=== PATIENT | male | born 1955 | race Caucasian/White ===

== ENCOUNTER 2017-02-11 17:20 | Inpatient (IN) ==
[2017-02-11 19:38] LABS: Basophils # 0.1 10*3/uL (0.0-0.2); Basophils % 0.8 % (0.0-0.8); Eosinophils # 0.3 10*3/uL (0.0-0.87); Eosinophils % 2.4 % (0.00-10.9); Hematocrit 49.8 VOL% (42.0-52.0); Hemoglobin 17.8 GM/DL (14.0-18.0); Immature Granulocytes % 0.5 %; Immature Granulocytes Absolute 0.06 #; Lymphocytes # 2.5 10*3/uL (1.4-4.0); Lymphocytes % 22.3 % (21.2-54.2); Mean Corpuscular HGB Conc 35.7 GM/DL (32-36); Mean Corpuscular Hemoglobin 35 PG (27-34); Mean Platelet Volume 10.7 FL (9.6-12.0); Monocytes # 1.1 10*3/uL (0.11-0.8); Monocytes % 9.8 % (1.7-12.7); Neutrophils # 7.3 10*3/uL (1.4-7.4); Neutrophils % 64.2 % (38.7-73.9); Platelet Count 204 T/CUMM (130-400); Red Blood Count 5.08 MC/CUMM (3.8-5.5); Red Cell Distribution Width 14.4 % (9.3-17.3); White Blood Count 11.3 T/CUMM (4-12)
[2017-02-11 19:48] LABS: PT Patient Result 10.8 SECS; Partial Thromboplastin Time 27.9 SECS (0-40)
[2017-02-11 19:49] LABS: Calcium 8.1 MG/DL (8.5-10.1); Osmolality,Calculated 272.7 MOS/KG (273-304); Potassium 4.4 MMOL/L (3.5-5.1)
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
[2017-02-11] MEDS ORDERED: ASPIRIN 325 MG TABLET PO STA (22:08)
[2017-02-11] MEDS ORDERED: ENOXAPARIN 60 MG/0.6 ML SYRINGE SUBCUT STA (22:08)
[2017-02-11] MEDS ORDERED: ENOXAPARIN 60 MG/0.6 ML SYRINGE ONE (22:19)
[2017-02-11] MEDS ORDERED: ASPIRIN 325 MG TABLET ONE (22:20)
[2017-02-11] MEDS ORDERED: ONDANSETRON 4 MG/2 ML VIAL IV PRN (22:35)
[2017-02-11] MEDS ORDERED: ACETAMINOPHEN 325 MG TABLET PO PRN (22:35)
[2017-02-11] MEDS ORDERED: PROMETHAZINE 25 MG/1 ML VIAL IM PRN (22:35)
[2017-02-11] MEDS ORDERED: MORPHINE 2 MG/1 ML SYRINGE IV PRN (22:35)
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
[2017-02-12] MEDS ORDERED: PNEUMOCOCCAL VACCINE (23 VALENT) 0.5 ML VIAL IM ONE (09:00)
[2017-02-12] MEDS: HEPARIN DRIP 25,000 UNITS/500 ML PREMIX IV SCH (09:18)
[2017-02-12] MEDS: LACTATED RINGERS 1,000 ML IV SCH ×2 (09:28→21:56)
[2017-02-12] MEDS: PANTOPRAZOLE 40 MG TABLET PO SCH (09:29)
--- NOTE | 2017-02-12 13:36 | EKG Report ---
Stationary ECG Study [facility] Test Date: 02/12/2017 1:34:20 PM Pat Name: THAI RIVERA Department: Room: 338 Gender: M Research Biostatistician: EMILIANO : 1955 Requested by: George Cedeño Order Number: [id number] Reading MD: ALISHA BERGER Intervals [place] Rate: 149 P: 999 ID: 0 QRS: -71 QRSD: 85 T: 25 QT: 302 QTc: 387 Interpretive Statements ATRIAL FIBRILLATION WITH RAPID VENTRICULAR RESPONSE LEFT ANTERIOR FASCICULAR BLOCK ANTEROSEPTAL MYOCARDIAL INFARCTION, PROBABLY OLD LOW VOLTAGE TRACING Electronically Signed On 02-13-17 06:54:26 CDT by ALISHA BERGER [email or web address]
[2017-02-12] MEDS ORDERED: DIAZEPAM 5 MG TABLET PO PRN (14:01)
[2017-02-12] MEDS ORDERED: traMADol 50 MG TABLET PO PRN (14:01)
[2017-02-12] MEDS ORDERED: DILTIAZEM 50 MG/10 ML VIAL IV ONE ×2 (14:06→14:58)
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
[2017-02-12] MEDS ORDERED: DILTIAZEM 100 MG VIAL.ADD IV ONE (14:58)
[2017-02-12] MEDS ORDERED: SODIUM CHLORIDE 0.9% 100 ML IV ONE (15:01)
[2017-02-12] MEDS: DILTIAZEM INJ 100 MG in SODIUM CHLORIDE 0.9% 100 ML IV SCH (15:28)
[2017-02-12] MEDS: ASPIRIN CHEW 81 MG TABLET PO SCH (15:38)
[2017-02-12] MEDS: CARVEDILOL 12.5 MG TABLET PO SCH ×2 (15:38→21:20)
[2017-02-12] MEDS: AMIODARONE 200 MG TABLET PO SCH ×2 (15:39→21:20)
[2017-02-12] MEDS: ATORVASTATIN 80 MG TABLET PO SCH (20:33)
[2017-02-12] MEDS ORDERED: ENOXAPARIN 60 MG/0.6 ML SYRINGE SUBCUT SCH (22:00)
[2017-02-13] MEDS: HEPARIN DRIP 25,000 UNITS/500 ML PREMIX IV SCH ×2 (05:38→17:24)
[2017-02-13 05:40] LABS: Basophils # 0.1 10*3/uL (0.0-0.2); Basophils % 0.8 % (0.0-0.8); Eosinophils # 0.2 10*3/uL (0.0-0.87); Eosinophils % 2.5 % (0.00-10.9); Hematocrit 47.5 VOL% (42.0-52.0); Immature Granulocytes % 0.8 %; Immature Granulocytes Absolute 0.07 #; Lymphocytes % 21.2 % (21.2-54.2); Mean Corpuscular HGB Conc 35.8 GM/DL (32-36); Mean Corpuscular Hemoglobin 35 PG (27-34); Mean Corpuscular Volume 97.5 FL (87-102); Mean Platelet Volume 10.6 FL (9.6-12.0); Monocytes # 0.7 10*3/uL (0.11-0.8); Monocytes % 7.1 % (1.7-12.7); Neutrophils # 6.3 10*3/uL (1.4-7.4); Neutrophils % 67.6 % (38.7-73.9); Platelet Count 203 T/CUMM (130-400); Red Blood Count 4.87 MC/CUMM (3.8-5.5); Red Cell Distribution Width 14.2 % (9.3-17.3); White Blood Count 9.3 T/CUMM (4-12)
[2017-02-13] MEDS: DILTIAZEM INJ 100 MG in SODIUM CHLORIDE 0.9% 100 ML IV SCH ×2 (05:40→20:09)
[2017-02-13 06:06] LABS: Calcium 8.1 MG/DL (8.5-10.1); Osmolality,Calculated 270.8 MOS/KG (273-304)
[2017-02-13] MEDS: CARVEDILOL 12.5 MG TABLET PO SCH ×2 (08:33→20:09)
[2017-02-13] MEDS: ASPIRIN CHEW 81 MG TABLET PO SCH (08:34)
[2017-02-13] MEDS: PANTOPRAZOLE 40 MG TABLET PO SCH (08:34)
[2017-02-13] MEDS: AMIODARONE 200 MG TABLET PO SCH ×2 (08:34→20:08)
--- NOTE | 2017-02-13 08:56 | Cardiology Progress Note ---
Assessment and Plan - Time spent with patient Time spent with patient: Greater than 30 minutes (1) Atrial fibrillation with RVR Status: Acute Current Visit: No (2) Coronary artery disease Status: Acute Current Visit: No (3) Medical non-compliance Status: Acute Current Visit: No (4) Peripheral vascular disease Status: Acute Current Visit: No Cardiology - PN: Subj Interval history: Mr. Juan is a 61-year-old gentleman who has a history of cardiomyopathy had an apical thrombus that had resolved. This was in the remote past. He was lost to follow-up and has not been seen in clinic for some time. He states that he quit taking all of his medicines and then developed cramping in his right lower extremity got progressively worse. He came for further evaluation was found to have A. fib with RVR. He has a CTA which I have reviewed the final report is pending. I have reviewed the films. He has decreased flow to his right lower extremity. I have examined him today. His lower extremities are symmetrically cool he appears by angiography of the CTA to have some filling defects in the right distal profunda. Formal report is pending. Patient states that he subjectively better. Suspect he has an embolic phenomenon. He is currently on heparin infusion is also still on Cardizem infusion a very low rate. His heart rate is adequately controlled at this time. Dr. Cedeño saw the patient resumed his amiodarone. His echocardiogram is pending in our reviewing the images are available. Exam (Progress Note) - Constitutional Vitals: Period Temp Pulse Resp BP Sys/Roberts Pulse Ox Last 24 Hr 96.3 F-97.9 F 63-150 18-21 109-139/68-96 95-146 General appearance: normal weight - Head Head exam: Present: normal inspection - Eye Eye exam: Present: EOMI Pupils: Present: JOHANNY - Neck Neck exam: Present: normal inspection - Respiratory Respiratory exam: Present: clear to auscultation bilaterally - Cardiovascular Cardiovascular exam: Present: irregular rhythm (Right is about 100) - GI/Abdominal GI/Abdominal exam: Present: normal bowel sounds - Extremities Exam Extremities exam: Present: other (Symmetrically very cool. Pulses are diminished bilaterally. I am not able to palpate on either dorsalis pedis or posterior tibial. I can feel a left popliteal but not right) - Back Exam Back exam: Present: normal inspection - Neurological Exam Neurological exam: Present: alert, oriented X3 - Psychiatric Psychiatric exam: Present: normal affect, normal mood - Skin Skin exam: Present: normal color, warm, pallor (His lower extremities bilaterally) Result/EKG - Labs CBC & BMP: 02/13/17 05:18 02/13/17 05:18 Labs: Laboratory Results - last 24 hr 02/12/17 02/12/17 02/12/17 15:41 21:30 23:09 WBC RBC Hgb Hct MCV MCH MCHC RDW Plt Count MPV Neut % (Auto) Lymph % (Auto) [place] % (Auto) Eos % (Auto) Baso % (Auto) Neut # (Auto) Lymph # (Auto) [place] # (Auto) Eos # (Auto) Baso # (Auto) Immature Gran % Nucleated RBC % Immature Gran # Nucleated RBCs # Immature Plt Fraction Circ Anticoag PTT 70.4 H D 92.4 H D 64.4 H D Sodium Potassium Chloride Carbon Dioxide Anion Gap BUN Creatinine GFR Calculation BUN/Creatinine Ratio Glucose Calculated Osmolality Calcium 02/13/17 02/13/17 02/13/17 05:18 05:18 05:18 WBC 9.3 RBC 4.87 Hgb 17.0 Hct 47.5 MCV 97.5 MCH 35 H MCHC 35.8 RDW 14.2 Plt Count 203 MPV 10.6 Neut % (Auto) 67.6 Lymph % (Auto) 21.2 [place] % (Auto) 7.1 Eos % (Auto) 2.5 Baso % (Auto) 0.8 Neut # (Auto) 6.3 Lymph # (Auto) 2.0 [place] # (Auto) 0.7 Eos # (Auto) 0.2 Baso # (Auto) 0.1 Immature Gran % 0.8 Nucleated RBC % 0.0 Immature Gran # 0.07 Nucleated RBCs # 0.00 Immature Plt Fraction 0.0 Circ Anticoag PTT 89.6 H D Sodium 137 Potassium 4.0 Chloride 107 Carbon Dioxide 22 Anion Gap 12.0 BUN 7 Creatinine 1.00 GFR Calculation 87 BUN/Creatinine Ratio 7.00 Glucose 105 Calculated Osmolality 270.8 L Calcium 8.1 L - EKG EKG results: interpreted by me EKG shows: atrial fibrillation Quality Measures - VTE Contraindication to Mechanical VTE Prophylaxis: Ischemic Vascular Disease
[2017-02-13] MEDS ORDERED: VANCOMYCIN INJ 1,000 MG in SODIUM CHLORIDE 0.9% 250 ML IV ONE (09:15)
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
--- NOTE | 2017-02-13 09:44 | CT Report ---
Exam: CT angio abdomen/femoral Date: 02/13/2017 4:00 AM Comparison: None Indication: History of lower extremity claudication due to acute thromboembolus to the bilateral lower extremities with embolectomy in May of 2015. Technical: Axial CT imaging was performed from the lung bases through the iliac crest with to the toes. Coronal and sagittal reformatted images were additionally created and submitted for review. 3-D Maximal intensity projection images of the vasculature were additionally created and are available for review. 100 cc of Omnipaque 350 were utilized. Dose reduction: This CT exam was performed using one or more of the following dose reduction techniques: Automated exposure control, automated adjustment of the mA and/or KV according to patient size, or use of iterative reconstruction technique. Total DLP: 1502 mGy*cm Findings: CT angiogram: Abdomen/pelvis. Descending thoracic aorta is nonaneurysmal with minimal atherosclerotic plaque. Celiac artery and superior mesenteric arteries are essentially widely patent. There are also single bilateral renal arteries which are essentially widely patent with no significant atherosclerotic plaque. Abdominal aorta is nonaneurysmal with very minimal atherosclerotic plaque. Inferior mesenteric artery is patent. Within the pelvis, there is nonvisualization of the bilateral internal iliac arteries, possibly due to occlusion from thrombus. This is most prominent at the right proximal internal iliac artery (axial image 93), where there is suggestion of thrombus protruding into the external iliac artery lumen, which may be acute/subacute. Left internal iliac artery is not visualized currently and may be chronically occluded as this vessel was not previously visualized on the 2015 CTA. Right lower extremity: Right common femoral artery is patent with no significant atherosclerotic plaque. There is a small focal filling defect within the proximal right superficial femoral artery (axial image 139), which is indeterminate but may represent additional thrombus. The profunda femoris artery is not visualized on the right, and may be occluded from thrombus. There is minimal atherosclerotic plaque otherwise noted throughout the superficial femoral artery which is patent through the thigh. There is occlusion of the proximal popliteal artery above the knee and below the knee with minimal atherosclerotic plaque noted in the tibia peroneal trunk. The tibia peroneal vessels are not definitely opacified below the knee although there is suggestion of minimal reconstitution within the posterior tibial artery in the mid and lower turk, which is much better visualized on the delayed images. Left lower extremity: External iliac and common femoral arteries are patent. Superficial and deep femoral arteries are patent proximally. There is occlusion of the proximal deep femoral artery, likely due to acute/subacute thrombus. A few of the muscular branches however remain patent. The superficial femoral artery is patent. Proximal popliteal artery is patent. There is occlusion of the mid popliteal artery at the level of the knee, possibly due to acute/subacute thrombus. Below the knee, there is minimal visualization of patent/opacified vessels on the study. On the delayed images, there is minimal opacification of the peroneal artery, which appear to the be the primary supply to the left foot. Soft tissue analysis: Lung bases: Minimal posterior basilar atelectasis. No significant pleural or pericardial effusion. Liver and gallbladder: No abnormal enhancing hepatic lesions. No gallstones. No biliary ductal dilatation. Portal vein is not well visualized due to contrast bolus timing. Spleen: Hypodense lesion within the spleen is noted and may represent a cyst measuring up to 2.7 cm, this was not definitely identified on the 2015 study and is therefore indeterminate. Pancreas: Unremarkable Adrenals: Unremarkable Kidneys: Both kidneys are equally perfused and demonstrate no evidence for obstructive uropathy. Areas of cortical irregularity are noted bilaterally, slightly more prominent on the left and may be due to prior infection/trauma. There is no hydronephrosis. Bowel and Mesentery: Small bowel is nondilated. No free fluid/air within the abdomen. No mesenteric adenopathy. Moderate stool throughout colon. Retroperitoneum: No enlarged lymph nodes. IVC: Appears patent Pelvis: Bladder: Bladder appears unremarkable for degree of distention. Fluid: No free fluid identified. Lymph nodes: No enlarged lymph nodes. Pelvic organs: Prostate is not enlarged. Osseous structures: No acute or suspicious osseous abnormalities are identified. Multilevel degenerative changes noted within the lower thoracic and lumbar spine near the lumbosacral junction, which appear similar to minimally progressed from the 2015 CT study. Impression: 1. No evidence of aortic aneurysm or significant atherosclerotic disease. 2. Development of occlusion of multiple vessels, possibly due to acute/subacute thromboembolism. This includes the right internal iliac artery, the right deep femoral artery, the right popliteal artery, the left deep femoral artery and left popliteal artery. On delayed images, there is diminutive runoff to both feet primarily a 1 vessel runoff as detailed above. Overall, minimal atherosclerotic plaque/disease is visualized above the knee bilaterally. 3. Nonspecific 2.7 cm hypodense lesion within the spleen is indeterminate. This was not definitely present on the 2015 study. Malignancy is not excluded. This bears watching on subsequent studies for stability. Ultrasound could also be obtained for further evaluation when clinically feasible. Critical findings discussed with Dr. Parrish via telephone at 9:40 AM on the day of the examination. PROCEDURE INTERPRETED AT [facility] DEPARTMENT OF RADIOLOGY Final Report Signed by: Alejandro Wakefield
[2017-02-13] MEDS ORDERED: DIAZEPAM 5 MG TABLET PO ONE ×2 (10:02→10:08)
[2017-02-13] MEDS ORDERED: FAMOTIDINE 20 MG TABLET PO ONE ×2 (10:02→10:03)
--- NOTE | 2017-02-13 10:55 | ECHO Report ---
Ericka Juan Exam Date: 02/13/2017 08:52 Referring Physician: Technologist: Camille Thao RDCS Age: 61 Ht (in): 68 Wt (lb): 163 Gender: M Exam Location: [facility] Echo Indications: Atrial fibrillation, Right femoral embolus, Essential (primary) hypertension, Shortness of breath, Pre Op BP: 118 / 72 HR: 68 Rhythm: Atrial fibrillation Technical Quality: Average IMPRESSIONS Left ventricular ejection fraction is estimated at 40 %. Left ventricular apical thrombus Three chamber cardiac enlargement Tricuspid insufficiency and mild pulmonary hypertension estimated at 29 mmHg plus the right atrial pressure Atrial fibrillation with indeterminant diastolic parameters MEASUREMENTS (Male / Female) Normal Values 2D ECHO LV Diastolic Diameter PLAX 4.4 cm 4.2 - 5.9 / 3.9 - 5.3 cm LV Systolic Diameter PLAX 3.2 cm LV Fractional Shortening PLAX 26.4 % IVS Diastolic Thickness 0.8 cm 0.6 - 1.0 / 0.6 - 0.9 cm LVPW Diastolic Thickness 1.0 cm 0.6 - 1.0 / 0.6 - 0.9 cm RV Internal Dim ED PLAX 3.1 cm Aortic Root Diameter 3.4 cm LA Systolic Diameter LX 4.7 cm 3.0 - 4.0 / 2.7 - 3.8 cm DOPPLER TR Peak Velocity 270.0 cm/s TR Peak Gradient 29.2 mmHg FINDINGS Left Ventricle Normal left ventricular cavity size. Normal left ventricular wall thickness. Left ventricular ejection fraction is estimated at 40 %. The apex is thinned and there is hyperechoic endocardium/epicardium. There is a large mobile structure attached at the apex of the left ventricle that is broad based and measures 1.95 X 2.65 cm in greatest dimension. This is consistent with apical ventricular thrombus. The patient is in atrial fibrillation and therefore diastolic parameters are indeterminant. Right Ventricle Moderately increased right ventricular size and moderately depressed function. Right Atrium Moderately increased right atrial size. Left Atrium Moderately increased left atrial size. Mitral Valve Morphologically normal mitral valve. Trace to mild mitral valve regurgitation. There is mitral annular calcification with no demonstrable mitral stenosis. Aortic Valve Mild aortic valve sclerosis and mildly calcified without stenosis or regurgitation. Tricuspid Valve Morphologically normal tricuspid valve. Mild tricuspid valve regurgitation. Tricuspid regurgitation velocities suggest a RVSP of 29 mmHg plus the right atrial pressure. Pulmonic Valve Morphologically normal pulmonic valve without significant stenosis. There is no pulmonic regurgitation. Pericardium Normal pericardium without effusion. Aorta Normal ascending aorta dimension. Kayleigh Pagan (Electronically Signed) Final Date: 13 February 2017 10:53
[2017-02-13] MEDS ORDERED: VANCOMYCIN 500 MG VIAL ONE (11:48)
[2017-02-13] MEDS ORDERED: TISSUE ADHESIVE 1 EACH APPLICATOR TOP ONE (11:48)
[2017-02-13] MEDS ORDERED: HEPARIN 5,000 UNIT/1 ML VIAL ONE ×2 (11:48→13:10)
[2017-02-13] MEDS: LACTATED RINGERS 1,000 ML IV SCH ×3 (12:04→17:23)
[2017-02-13] MEDS ORDERED: fentaNYL 100 MCG/2 ML VIAL ONE (14:16)
[2017-02-13] MEDS ORDERED: SEVOFLURANE 1 UNIT/15 MINUTE INH ONE (14:16)
[2017-02-13] MEDS ORDERED: HEPARIN/NACL 0.9% 2 UNITS/ML 500 ML IV ONE (14:16)
[2017-02-13] MEDS ORDERED: ePHEDrine 50 MG/ML AMP ONE (14:19)
[2017-02-13] MEDS ORDERED: HYDROmorphone 2 MG/1 ML VIAL ONE (14:24)
[2017-02-13] MEDS ORDERED: ONDANSETRON 4 MG/2 ML VIAL ONE (14:24)
--- NOTE | 2017-02-13 14:34 | Interventional Radiology Rpt ---
IR interventional pro in OR Indication: Right femoral endarterectomy. Intraoperative angiogram right le images stored of 8 intraoperative arteriogram of the right thigh. Fluoroscopy time 5 minutes 20 seconds. Contrast is injected mid right SFA. There is segmental occlusion of the popliteal artery that never resolves. Another segmental occlusion of the tibioperoneal trunk is present. Outflow to the right posterior tibial artery noted once the occluded segment was crossed with a catheter. However, there is no direct inflow present. Impression: Occluded segments of the right popliteal artery and tibioperoneal trunk as described. Widely patent distal right PT, without direct inflow. PROCEDURE INTERPRETED AT [facility] DEPARTMENT OF RADIOLOGY Final Report Signed by: Rambo Funes M.D.
[2017-02-13] MEDS ORDERED: ONDANSETRON 4 MG/2 ML VIAL IV PRN (14:48)
[2017-02-13] MEDS ORDERED: HYDROmorphone 2 MG/1 ML VIAL IV PRN (14:48)
--- NOTE | 2017-02-13 18:27 | Operative Note ---
Date of procedure: 02/13/17 Procedure: Dr. Parrish operative report Luis ambriz Surgeon: Shivani Anesthesia: Tested general endotracheal Preoperative diagnosis: Right popliteal and superficial femoral embolus Postoperative diagnosis: Same Right femoral embolectomy with on table arteriography Indication for the procedure Mr. Justice is 61-year-old man who was admitted with the acute onset of right leg claudication more severe than he had had in the recent past his past medical history is significant for atrial fibrillation and previous embolic event involving his left leg he has not had any change in his left leg symptoms CTA has been done and it shows embolus in the right internal iliac the right popliteal profunda and the right popliteal arteries and what appears to be old disease in the left popliteal and trifurcation vessels I have offered embolectomy and any other procedures needs to have explained the alternatives risks and complications which he understands and accepts Description of the procedure: After the induction of general endotracheal anesthesia the patient's lower abdomen and right leg to the ankle are prepped with ChloraPrep and draped in the usual fashion Ioban is used to the groin incision was made over the femoral Canal and carried down to the common femoral artery separately controlling the common femoral profunda and superficial femorals I made a fairly long arteriotomy to be certain that I had control of the bifurcation of the common femoral the patient had been on heparin and was given another 5000 IUs Vesseloops a Satinsky clamp to control the common superficial and profunda femoris vessels I did find fresh and old or thrombus and embolus at the bifurcation of the superficial femoral and into the profunda these were removed with a #4 Christelle catheter I was able to run the Christelle catheter to the level of about the mid popliteal artery could not get it to go any further but will obtain much better backbleeding from both the superficial femoral and the profunda I obtained good bleeding from the iliac and actually did remove some embolus from the common iliac. I did arteriography that showed the dye column stopping at the popliteal I explored this with the guidewire and a 4 Peruvian catheter which I can get down into the distal popliteal but could not really get any kind catheter into the distal popliteal and could not get a balloon catheter into the distal popliteal. My thought was at this point in time the patient obviously is been having some chronic disease in this area with minimal symptoms I felt therefore I would not persist in attempting to revascularize to the lower leg that if this becomes indicated something like a femoral-popliteal bypass may be more appropriate. The arteries were flushed and the incision was closed with a bovine pericardial patch and 506 0 Prolene suture hemostasis was good there is good Doppler flow in the profunda and superficial femoral at the completion the incision was irrigated there was sprayed with Tisseel for reading establishing hemostasis in the this case were we will resume heparin and Coumadin due to his chronic atrial fibrillation and known apical thrombus. Incision was closed with 2-0 Monocryl and skin clips blood loss is estimated 150-200 cc sponge needle and his counts are correct and the patient taken to recovery in stable condition Surgeon / Physician: Adair Parrish Results - Labs CBC & BMP: 02/13/17 05:18 02/13/17 05:18 Discharge Plan - Discharge Medications New traMADol TAB [Ultram] 50 mg PO Q6H PRN #20 tablet PRN Reason: Pain No Action Potassium Chloride Cap/Tab [Micro K] 8 meq PO BID #30 capsule Tramadol HCl [Tramadol Tab] 50 mg PO Q6H PRN #20 tablet PRN Reason: Pain Aspirin Chew Tab 81 mg PO DAILY tablet Amiodarone Tab [Cordarone Tab] 400 mg PO BID #60 tablet Carvedilol [Coreg] 12.5 mg PO BID #60 tablet Warfarin [Coumadin] 5 mg PO DAILY@1800 #14 tablet Atorvastatin [Lipitor] 80 mg PO BEDTIME #30 tablet HYDROcodone/ACETAMIN 10-325 [[place] 10-325] 1 tablet PO Q4H PRN #30 tablet PRN Reason: Pain Moderate (4-7) Diazepam Tab [Valium Tab] 5 mg PO Q2H PRN #0 tablet PRN Reason: Agitation Lisinopril [Prinivil] 2.5 mg PO DAILY #30 tablet - Follow Up or Referral - Forms/Instructions
[2017-02-13] MEDS: ATORVASTATIN 80 MG TABLET PO SCH (20:08)
[2017-02-13] MEDS: DOCUSATE SODIUM 100 MG CAPSULE PO SCH (20:08)
[2017-02-14] MEDS: LACTATED RINGERS 1,000 ML IV SCH (04:13)
[2017-02-14 05:59] LABS: Basophils % 0.6 % (0.0-0.8); Eosinophils # 0.2 10*3/uL (0.0-0.87); Hemoglobin 14.3 GM/DL (14.0-18.0); Immature Granulocytes % 0.3 %; Immature Granulocytes Absolute 0.02 #; Lymphocytes # 1.5 10*3/uL (1.4-4.0); Lymphocytes % 20.4 % (21.2-54.2); Mean Corpuscular HGB Conc 34.9 GM/DL (32-36); Mean Corpuscular Hemoglobin 35 PG (27-34); Mean Corpuscular Volume 100.5 FL (87-102); Mean Platelet Volume 10.5 FL (9.6-12.0); Monocytes # 0.6 10*3/uL (0.11-0.8); Monocytes % 7.7 % (1.7-12.7); Platelet Count 171 T/CUMM (130-400); Red Blood Count 4.08 MC/CUMM (3.8-5.5); Red Cell Distribution Width 14.5 % (9.3-17.3); White Blood Count 7.3 T/CUMM (4-12)
[2017-02-14 06:56] LABS: Calcium 7.7 MG/DL (8.5-10.1); Osmolality,Calculated 273.7 MOS/KG (273-304); Potassium 4.4 MMOL/L (3.5-5.1)
--- NOTE | 2017-02-14 07:57 | Event Note ---
Mr. Justice is actually doing well this morning, early incision looks good with no hematoma. Foot is warm I cannot palpate pedal pulses but I am not surprised popliteal occlusion of 6 oh and so has the chart I am asked that he ambulate today we will get him off his heparin infusion appropriately from his cardiac thrombus I did agree to resume his Coumadin yesterday as he should be here long enough to start ambulating and to get his Coumadin therapeutic
[2017-02-14] MEDS: AMIODARONE 200 MG TABLET PO SCH (08:33)
[2017-02-14] MEDS: DOCUSATE SODIUM 100 MG CAPSULE PO SCH ×2 (08:33→21:01)
[2017-02-14] MEDS: CARVEDILOL 12.5 MG TABLET PO SCH ×2 (08:33→21:01)
[2017-02-14] MEDS: PANTOPRAZOLE 40 MG TABLET PO SCH (08:34)
[2017-02-14] MEDS: ASPIRIN CHEW 81 MG TABLET PO SCH (08:34)
--- NOTE | 2017-02-14 09:34 | Cardiology Progress Note ---
Assessment and Plan (1) Atrial fibrillation with RVR Status: Acute Assessment and plan: This is paroxysmal and back in sinus rhythm Current Visit: No (2) Coronary artery disease Status: Chronic Current Visit: No Qualifiers: Coronary Disease-Associated Artery/Lesion type: [place] artery [place] vs. transplanted heart: [place] heart Associated angina: without angina Qualified Code(s): I25.10 - Atherosclerotic heart disease of [place] coronary artery without angina pectoris (3) Medical non-compliance Status: Chronic Current Visit: No (4) Peripheral vascular disease Status: Acute Current Visit: No (5) Dyslipidemia Status: Chronic Current Visit: Yes Cardiology - PN: Subj Interval history: Mr. Juan today states he subjectively better. I discussed with Dr. Parrihs this morning. The patient will continue on heparin while we are overlapping with warfarin. One of the newer novel anticoagulants would probably be better for him but financially this would not be possible. His heart rate is down and he is in normal sinus rhythm. Will discontinue his Cardizem infusion and decrease his amiodarone to a more routine dose. We have room to increase his beta- lori if needed. Would like to avoid Cardizem if possible. Consider discontinuation of amiodarone as he has a secondary indication for anticoagulation with his thrombus. Exam (Progress Note) - Constitutional Vitals: Period Temp Pulse Resp BP Sys/Roberts Pulse Ox Last 24 Hr 96.3 F-98.6 F 48-73 16-20 93-116/60-77 92-98 General appearance: normal weight - Eye Eye exam: Present: EOMI Pupils: Present: JOHANNY - Neck Neck exam: Present: normal inspection - Respiratory Respiratory exam: Present: clear to auscultation bilaterally - Cardiovascular Cardiovascular exam: Present: regular rate and rhythm - GI/Abdominal GI/Abdominal exam: Present: normal bowel sounds - Extremities Exam Extremities exam: Present: normal inspection (Access site right groin looks good. It is dressed) - Neurological Exam Neurological exam: Present: alert, oriented X3 - Psychiatric Psychiatric exam: Present: normal affect, normal mood - Skin Skin exam: Present: normal color, warm, dry Result/EKG - Labs CBC & BMP: 02/14/17 05:53 02/14/17 05:53 Labs: Laboratory Results - last 24 hr 02/13/17 02/13/17 02/14/17 14:37 23:23 05:53 WBC 7.3 RBC 4.08 Hgb 14.3 D Hct 41.0 L MCV 100.5 MCH 35 H MCHC 34.9 RDW 14.5 Plt Count 171 MPV 10.5 Neut % (Auto) 68.0 Lymph % (Auto) 20.4 L Dickinson % (Auto) 7.7 Eos % (Auto) 3.0 Baso % (Auto) 0.6 Neut # (Auto) 5.0 Lymph # (Auto) 1.5 Dickinson # (Auto) 0.6 Eos # (Auto) 0.2 Baso # (Auto) 0.0 Immature Gran % 0.3 Nucleated RBC % 0.0 Immature Gran # 0.02 Nucleated RBCs # 0.00 Immature Plt Fraction 0.0 Circ Anticoag PTT 89.9 H 60.0 H D Sodium Potassium Chloride Carbon Dioxide Anion Gap BUN Creatinine GFR Calculation BUN/Creatinine Ratio Glucose Calculated Osmolality Calcium 02/14/17 02/14/17 05:53 05:53 WBC RBC Hgb Hct MCV MCH MCHC RDW Plt Count MPV Neut % (Auto) Lymph % (Auto) Dickinson % (Auto) Eos % (Auto) Baso % (Auto) Neut # (Auto) Lymph # (Auto) Dickinson # (Auto) Eos # (Auto) Baso # (Auto) Immature Gran % Nucleated RBC % Immature Gran # Nucleated RBCs # Immature Plt Fraction Circ Anticoag PTT 93.4 H D Sodium 138 Potassium 4.4 Chloride 105 Carbon Dioxide 25 Anion Gap 12.4 BUN 6 L Creatinine 1.00 GFR Calculation 90 BUN/Creatinine Ratio 6.00 Glucose 111 H Calculated Osmolality 273.7 Calcium 7.7 L Quality Measures - VTE Contraindication to Pharmacological VTE Prophylaxis: Already on Theraputic Agent , No Prophylaxis Needed
--- NOTE | 2017-02-14 10:29 | Physician Query Form ---
CLICK EDIT DOCUMENT TO SELECT QUERY ANSWER --> OK --> SIGN Grace Putnam RN, CCDS Certified Clinical Emergency Room Clerk W) [phone] (f) [phone] [email or web address] PROVIDERS: Make your selection(s) from the choices in EACH section by typing an "x" and enter comments in the comment section. Please use your independent medical judgment in providing your response. This request does not imply that any particular answer is desired or expected. CLINICAL INDICATORS: (Providers should not edit this section) The medical record indicates that the patient was admitted for claudication, "probably embolic", "A. fib is probably the source of his leg pain", and the patient was started on IV Cardizem. If possible, please provide further specificity regarding atrial fibrillation, such as: ( ) Paroxysmal atrial fibrillation ( ) Persistent atrial fibrillation (X ) Chronic (permanent) atrial fibrillation ( ) Post operative complication of atrial fibrillation ( ) Other, please specify: ( ) Clinically unable to determine COMMENTS: I will defer to Dr. Mathis's assessment that it is chronic atrial fibrillation. I do not know the patient. He does. PLEASE ALSO DOCUMENT RESPONSE IN PROGRESS NOTES AND/OR DISCHARGE SUMMARY Use of terms such as suspected, likely, or probable (associated with a specific diagnosis that is being evaluated, monitored, or treated as if it exists) are acceptable and can be restated in the discharge summary if not ruled out. In Dr. Pagan's discharge summary, he lists Atrial fib as chronic. MTDD
--- NOTE | 2017-02-14 11:13 | Anesthesia Post-Op ---
Anesthesia Post OP - Post Ansesthetic Evaluation Patient seen in post op: Yes Resp: within normal limits CV: within normal limits Mental: within normal limits Temp: within normal limits Disc-[id number]-[id number]: within normal limits Nausea and Vomiting: within normal limits Pain: within normal limits
--- NOTE | 2017-02-14 12:05 | Event Note ---
I discussed this case with Dr. Olea yesterday and he agreed to take over his care since his problem is vascular.
[2017-02-14] MEDS: HEPARIN DRIP 25,000 UNITS/500 ML PREMIX IV SCH (12:29)
[2017-02-14] MEDS: WARFARIN 5 MG TABLET PO SCH (17:56)
--- NOTE | 2017-02-14 18:27 | Pathology Report from [facility] ---
[facility] ACCESSION # : [id number] PATIENT NAME : Thai Rivera ORDERING DR : MERISSA THAKKAR III, MD CLINICAL HX: Right femoral embolus POST-OP DX: Same SPECIMEN INFO: Right femoral clot GROSS DESCRIPTION: The specimen is received in formalin labeled with the patients name and consists of multiple fragments of clotted blood measuring 13.2 x 0.6 cm collectively. A commercial sales representative section submitted in one cassette. DIAGNOSIS FOR THAI RIVERA: RIGHT FEMORAL ARTERY, EMBOLECTOMY: Organizing blood clot. COLLECTED DATE: 02/13/2017 [facility] REPORT DATE: 02/14/2017 ELECTRONICALLY SIGNED BY: Nupur Carvalho III, M.D. 02/14/2017 - 10:30:44 [facility]ie
[2017-02-14] MEDS: ATORVASTATIN 80 MG TABLET PO SCH (21:01)
[2017-02-15 04:54] LABS: Basophils # 0.1 10*3/uL (0.0-0.2); Basophils % 0.7 % (0.0-0.8); Eosinophils # 0.3 10*3/uL (0.0-0.87); Hematocrit 40.9 VOL% (42.0-52.0); Immature Granulocytes % 0.4 %; Immature Granulocytes Absolute 0.03 #; Lymphocytes # 2.1 10*3/uL (1.4-4.0); Lymphocytes % 29.6 % (21.2-54.2); Mean Corpuscular HGB Conc 34.2 GM/DL (32-36); Mean Corpuscular Hemoglobin 35 PG (27-34); Monocytes # 0.7 10*3/uL (0.11-0.8); Monocytes % 9.8 % (1.7-12.7); Neutrophils # 3.9 10*3/uL (1.4-7.4); Neutrophils % 55.5 % (38.7-73.9); Platelet Count 172 T/CUMM (130-400); Red Blood Count 4.01 MC/CUMM (3.8-5.5); Red Cell Distribution Width 14.4 % (9.3-17.3)
[2017-02-15 05:10] LABS: INR 1.1; PT Patient Result 12.1 SECS
[2017-02-15 05:21] LABS: Calcium 7.7 MG/DL (8.5-10.1); Magnesium 2.2 MG/DL (1.8-2.4); Osmolality,Calculated 275.4 MOS/KG (273-304); Potassium 4.1 MMOL/L (3.5-5.1)
[2017-02-15] MEDS: DOCUSATE SODIUM 100 MG CAPSULE PO SCH ×2 (08:47→22:06)
[2017-02-15] MEDS: HEPARIN DRIP 25,000 UNITS/500 ML PREMIX IV SCH ×2 (08:47→13:59)
[2017-02-15] MEDS: AMIODARONE 200 MG TABLET PO SCH (08:47)
[2017-02-15] MEDS: CARVEDILOL 12.5 MG TABLET PO SCH ×2 (08:47→22:06)
[2017-02-15] MEDS: PANTOPRAZOLE 40 MG TABLET PO SCH (08:47)
[2017-02-15] MEDS: ASPIRIN CHEW 81 MG TABLET PO SCH (08:47)
--- NOTE | 2017-02-15 10:44 | Event Note ---
Ms. William's lab looks good Coumadin is not yet therapeutic states his leg and foot feel better. Incision looks fine. We should have him ambulating in the ortega and he can be discharged home when his Coumadin is therapeutic. I will plan to see him next week to take out skin matthew
[2017-02-15] MEDS ORDERED: guaiFENesin 200 MG/10 ML UDCUP PO PRN (10:53)
--- NOTE | 2017-02-15 11:29 | Cardiology Progress Note ---
<Camille Sunshine E - Last Filed: 02/15/17 11:04> Assessment and Plan - Time spent with patient Time spent with patient: Greater than 30 minutes (1) Left ventricular apical thrombus Status: Chronic Assessment and plan: SEE PLAN OF CARE LISTED BELOW Current Visit: Yes (2) PAF (paroxysmal atrial fibrillation) Status: Chronic Assessment and plan: SEE PLAN OF CARE LISTED BELOW Current Visit: Yes (3) Hypertension Status: Chronic Assessment and plan: SEE PLAN OF CARE LISTED BELOW Current Visit: Yes (4) Dyslipidemia Status: Chronic Assessment and plan: SEE PLAN OF CARE LISTED BELOW Current Visit: Yes (5) Atrial fibrillation with RVR Status: Acute Assessment and plan: SEE PLAN OF CARE LISTED BELOW Current Visit: No (6) Coronary artery disease Status: Chronic Assessment and plan: SEE PLAN OF CARE LISTED BELOW Current Visit: No Qualifiers: Coronary Disease-Associated Artery/Lesion type: [place] artery [place] vs. transplanted heart: [place] heart Associated angina: without angina Qualified Code(s): I25.10 - Atherosclerotic heart disease of [place] coronary artery without angina pectoris (7) Peripheral vascular disease Status: Chronic Assessment and plan: SEE PLAN OF CARE LISTED BELOW Current Visit: No (8) Tobacco dependence Status: Chronic Assessment and plan: SEE PLAN OF CARE LISTED BELOW Current Visit: No (9) Medical non-compliance Status: Chronic Assessment and plan: SEE PLAN OF CARE LISTED BELOW Current Visit: No (10) Dyslipidemia Status: Chronic Current Visit: Yes Cardiology - PN: Subj Interval history: SPORTS ANALYST: DR. BERGER SUMMARY: Mr. 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 History of left and right apical mural thrombus, intermittent atrial fibrillation, polycythemia. May 2015, patient was admitted with atrial fibrillation embolizing to his leg. Dr. Bib Valentin performed femoral-popliteal and tibial embolectomy. He was placed on Coumadin at that time however his INR was subtherapeutic on arrival (not taking due to cost). He was noted to have polycythemia during May 2015 admission but, to my knowledge, did not follow-up with hematology for further workup. Echocardiogram February 11, 2017: EF 40% (previously 20%), 3 chamber cardiac enlargement, left ventricular apical thrombus, PAP 29 mmHg + RAP. Admitted February 11, 2017 for claudication right lower extremity and was found to have thrombus in the right popliteal with some reconstitution below the knee. He was started on IV Heparin. February 13, 2017, patient underwent right popliteal and superficial femoral embolectomy performed by Dr. Parrish. He has tolerated the procedure well and remained on telemetry unit. FEBRUARY 15, 2017: This morning, patient reports right lower extremity is feeling better. Physical therapy has been consulted to ambulate patient. He remains on IV heparin. Coumadin was reinitiated last evening. Dr. Parrish feels that as soon as INR is therapeutic, he is agreeable for discharge. This morning, patient was started on oral Amiodarone as he is having paroxysms of normal sinus rhythm. Will continue to monitor his labs closely. Will further discuss with Dr. Berger and await additional recommendations. ASSESSMENT/PLAN: 1. THROMBUS RIGHT POPLITEAL ARTERY WITH CLAUDICATION - now status post revascularization 2. LEFT VENTRICULAR APICAL THROMBUS - IV Heparin, Coumadin 3. PAROXYSMAL ATRIAL FIBRILLATION - started on Amiodarone. LFTs in the morning. Continue to monitor telemetry. 4. CARDIOMYOPATHY - suspected to be combined ischemic and nonischemic. EF improved from 20% to 40%. On beta-lori. Will incorporate ALEJANDRO inhibitor when blood pressure will allow. 5. HYPERTENSION - adequately controlled on low-dose beta-lori. Blood pressure will not allow for introduction of an ALEJANDRO inhibitor 6. DYSLIPIDEMIA - FLP in a.m. LFTs in a.m. 7. NONCOMPLIANCE - reiterated the importance of continued medical compliance and follow-up 8. HIGH RISK MEDICATION - continue IV heparin until INR therapeutic. 9. CAD - stable without complaints of angina 10. TOBACCO USE - greater than 5 minutes was spent today discussing the merits of tobacco cessation Exam (Progress Note) - Constitutional Vitals: Period Temp Pulse Resp BP Sys/Roberts Pulse Ox Last 24 Hr 97.1 F-98.1 F 54-62 16-20 91-138/56-80 94-98 Exam: General: [Appears well with no apparent distress.] [Pleasant and cooperative. ] [Appears comfortable.] HEENT: [Normocephalic, atraumatic. Mucous membranes moist. No jaundice noted. Conjunctiva moist and clear, sclerae anicteric] Neck: No JVD/HJR, no thyromegaly or lymphadenopathy noted. No carotid bruit appreciated Cardiac: [Regular rate and rhythm.] [No obvious murmur rub or gallop.] Lungs: [Clear to auscultation without accessory muscle use to assist the respiratory pattern.] Not requiring oxygen Abdomen: Soft, bowel sounds normoactive. Nontender and nondistended. No abdominal bruit or thrill noted. No masses noted. Musculoskeletal: No fluid collection. Decreased range of motion is noted. Extremities: Right lower extremity access site stable without hematoma or bruit. No clubbing, cyanosis noted. [ No edema noted.] Upper extremity pulses 2+. Lower extremity pulses 1 +. Capillary refill less than 3 seconds. Skin: No unusual lesions or rashes. No skin breakdown appreciated. Neuro: Awake, alert and oriented 3. Moves all extremities well without hemiparesis or paralysis. No essential tremor is appreciated. Result/EKG - Labs CBC & BMP: 02/15/17 04:03 02/15/17 04:03 Lab Results: I have reviewed the past 24 hour labs Labs: Laboratory Results - last 24 hr 02/14/17 02/14/17 02/15/17 12:52 18:55 04:03 WBC 7.0 RBC 4.01 Hgb 14.0 Hct 40.9 L MCV 102.0 MCH 35 H MCHC 34.2 RDW 14.4 Plt Count 172 MPV 11.0 Neut % (Auto) 55.5 Lymph % (Auto) 29.6 [place]bert % (Auto) 9.8 Eos % (Auto) 4.0 Baso % (Auto) 0.7 Neut # (Auto) 3.9 Lymph # (Auto) 2.1 [place] # (Auto) 0.7 Eos # (Auto) 0.3 Baso # (Auto) 0.1 Immature Gran % 0.4 Nucleated RBC % 0.0 Immature Gran # 0.03 Nucleated RBCs # 0.00 Immature Plt Fraction 0.0 INR PT Patient/Control Mix Circ Anticoag PTT 67.9 H D 66.2 H Sodium Potassium Chloride Carbon Dioxide Anion Gap BUN Creatinine GFR Calculation BUN/Creatinine Ratio Glucose Calculated Osmolality Calcium Magnesium 02/15/17 02/15/17 04:03 04:03 WBC RBC Hgb Hct MCV MCH MCHC RDW Plt Count MPV Neut % (Auto) Lymph % (Auto) [place] % (Auto) Eos % (Auto) Baso % (Auto) Neut # (Auto) Lymph # (Auto) [place] # (Auto) Eos # (Auto) Baso # (Auto) Immature Gran % Nucleated RBC % Immature Gran # Nucleated RBCs # Immature Plt Fraction INR 1.1 PT Patient/Control Mix 12.1 Circ Anticoag PTT Sodium 140 Potassium 4.1 Chloride 106 Carbon Dioxide 30 Anion Gap 8.1 BUN 5 L Creatinine 1.00 GFR Calculation 90 BUN/Creatinine Ratio 5.00 L Glucose 98 Calculated Osmolality 275.4 Calcium 7.7 L Magnesium 2.2 - EKG EKG results: interpreted by me EKG shows: sinus rhythm, atrial fibrillation Quality Measures - VTE Contraindication to Pharmacological VTE Prophylaxis: Already on Theraputic Agent , No Prophylaxis Needed Specialty Discharge - Follow Up or Referrals Follow up with: Adair Parrish MD [Physician] - 02/21/17 2:15 pm <Kayleigh Berger - Last Filed: 02/15/17 15:06> Assessment and Plan (1) Atrial fibrillation with RVR Status: Acute Assessment and plan: Change anticoagulant Current Visit: No (2) Coronary artery disease Status: Chronic Current Visit: No Qualifiers: Coronary Disease-Associated Artery/Lesion type: [place] artery [place] vs. transplanted heart: [place] heart Associated angina: without angina Qualified Code(s): I25.10 - Atherosclerotic heart disease of [place] coronary artery without angina pectoris (3) Medical non-compliance Status: Chronic Current Visit: No (4) Peripheral vascular disease Status: Chronic Current Visit: No (5) Dyslipidemia Status: Chronic Current Visit: Yes Cardiology - PN: Subj Interval history: I saw Mr. Juan discussed with Dr. Parrish this morning we will convert him from heparin to Lovenox understanding that there is a risk for increased risk of bleeding. Hopefully we can mobilize the patient he has been up walking some in the room. Continue medical therapy for his cardiomyopathy. Anticipate discharge as soon as his INR is therapeutic. Exam (Progress Note) - Constitutional Vitals: Period Temp Pulse Resp BP Sys/Roberts Pulse Ox Last 24 Hr 97.1 F-98.1 F 55-62 16-18 101-138/65-80 94-98 Exam: I agree with the above history and physical. The patient's groin site looks good his exam is stable Result/EKG - Labs CBC & BMP: 02/15/17 04:03 02/15/17 04:03 Labs: Laboratory Results - last 24 hr 02/14/17 02/15/17 02/15/17 18:55 04:03 04:03 WBC 7.0 RBC 4.01 Hgb 14.0 Hct 40.9 L MCV 102.0 MCH 35 H MCHC 34.2 RDW 14.4 Plt Count 172 MPV 11.0 Neut % (Auto) 55.5 Lymph % (Auto) 29.6 [place] % (Auto) 9.8 Eos % (Auto) 4.0 Baso % (Auto) 0.7 Neut # (Auto) 3.9 Lymph # (Auto) 2.1 [place]bert # (Auto) 0.7 Eos # (Auto) 0.3 Baso # (Auto) 0.1 Immature Gran % 0.4 Nucleated RBC % 0.0 Immature Gran # 0.03 Nucleated RBCs # 0.00 Immature Plt Fraction 0.0 INR 1.1 PT Patient/Control Mix 12.1 Circ Anticoag PTT 66.2 H Sodium Potassium Chloride Carbon Dioxide Anion Gap BUN Creatinine GFR Calculation BUN/Creatinine Ratio Glucose Calculated Osmolality Calcium Magnesium 02/15/17 04:03 WBC RBC Hgb Hct MCV MCH MCHC RDW Plt Count MPV Neut % (Auto) Lymph % (Auto) [place] % (Auto) Eos % (Auto) Baso % (Auto) Neut # (Auto) Lymph # (Auto) [place] # (Auto) Eos # (Auto) Baso # (Auto) Immature Gran % Nucleated RBC % Immature Gran # Nucleated RBCs # Immature Plt Fraction INR PT Patient/Control Mix Circ Anticoag PTT Sodium 140 Potassium 4.1 Chloride 106 Carbon Dioxide 30 Anion Gap 8.1 BUN 5 L Creatinine 1.00 GFR Calculation 90 BUN/Creatinine Ratio 5.00 L Glucose 98 Calculated Osmolality 275.4 Calcium 7.7 L Magnesium 2.2
[2017-02-15] MEDS: WARFARIN 5 MG TABLET PO SCH (17:14)
[2017-02-15] MEDS: ENOXAPARIN 80 MG/0.8 ML SYRINGE SUBCUT SCH (22:05)
[2017-02-15] MEDS: ATORVASTATIN 80 MG TABLET PO SCH (22:06)
[2017-02-16 04:39] LABS: Basophils # 0.1 10*3/uL (0.0-0.2); Basophils % 0.8 % (0.0-0.8); Eosinophils # 0.3 10*3/uL (0.0-0.87); Eosinophils % 3.5 % (0.00-10.9); Hematocrit 43.6 VOL% (42.0-52.0); Hemoglobin 15.2 GM/DL (14.0-18.0); Immature Granulocytes % 0.7 %; Immature Granulocytes Absolute 0.06 #; Lymphocytes % 23.2 % (21.2-54.2); Mean Corpuscular HGB Conc 34.9 GM/DL (32-36); Mean Corpuscular Hemoglobin 35 PG (27-34); Mean Corpuscular Volume 100.2 FL (87-102); Monocytes # 0.9 10*3/uL (0.11-0.8); Monocytes % 10.3 % (1.7-12.7); Neutrophils # 5.4 10*3/uL (1.4-7.4); Neutrophils % 61.5 % (38.7-73.9); Platelet Count 189 T/CUMM (130-400); Red Blood Count 4.35 MC/CUMM (3.8-5.5); Red Cell Distribution Width 14.2 % (9.3-17.3); White Blood Count 8.8 T/CUMM (4-12)
[2017-02-16 04:54] LABS: INR 1.3; PT Patient Result 14.1 SECS
[2017-02-16 05:10] LABS: Albumin 2.5 G/DL (3.4-5.0); Bilirubin,Direct 0.3 MG/DL (0.0-0.20); Bilirubin,Indirect 0.9 MG/DL (0.0-1.0); Bilirubin,Total 1.2 MG/DL (0.2-1.0); Osmolality,Calculated 279.1 MOS/KG (273-304); Potassium 4.1 MMOL/L (3.5-5.1); Risk Ratio 2.68; Total Protein 5.1 G/DL (6.4-8.3); VLDL CHOLESTEROL 13.6 MG/DL
[2017-02-16] MEDS: DOCUSATE SODIUM 100 MG CAPSULE PO SCH ×2 (08:25→21:48)
[2017-02-16] MEDS: AMIODARONE 200 MG TABLET PO SCH (08:25)
[2017-02-16] MEDS: PANTOPRAZOLE 40 MG TABLET PO SCH (08:25)
[2017-02-16] MEDS: CARVEDILOL 12.5 MG TABLET PO SCH ×2 (08:25→21:48)
[2017-02-16] MEDS: ASPIRIN CHEW 81 MG TABLET PO SCH (08:25)
[2017-02-16] MEDS: ENOXAPARIN 80 MG/0.8 ML SYRINGE SUBCUT SCH ×2 (08:25→21:48)
--- NOTE | 2017-02-16 08:46 | Event Note ---
Mr. Justice appears to be returning to baseline with his ambulation states is not quite as good as before getting around reasonably well. PT and INR not yet therapeutic level he has been switched to Lovenox which is think is fully appropriate. My thoughts are that once he is therapeutic on his Coumadin he can be discharged home I will plan to see him in the office early next week for wound check
--- NOTE | 2017-02-16 08:47 | Event Note ---
Mr. Saldana had a right femoral embolectomy Monday following an episode of embolization from left ventricular thrombus. He is doing well and is resuming his anticoagulation and can be discharged for me to follow-up next week
--- NOTE | 2017-02-16 08:48 | Cardiology Progress Note ---
Assessment and Plan (1) Atrial fibrillation with RVR Status: Acute Assessment and plan: continue anticoagulation Current Visit: No (2) Coronary artery disease Status: Chronic Current Visit: No Qualifiers: Coronary Disease-Associated Artery/Lesion type: [place] artery [place] vs. transplanted heart: [place] heart Associated angina: without angina Qualified Code(s): I25.10 - Atherosclerotic heart disease of [place] coronary artery without angina pectoris (3) Medical non-compliance Status: Chronic Current Visit: No (4) Peripheral vascular disease Status: Chronic Current Visit: No (5) Dyslipidemia Status: Chronic Current Visit: Yes Cardiology - PN: Subj Interval history: Mr. Juan has no complaints this morning. No change in leg symptoms. No chest pain and no change in respiratory status. He has been walking in the room without difficulty. I have encouraged him to get up and walk in the ortega. His INR is starting to move and is 1.3 this morning. Access site in right LE looks good. Vital signs are all stable and acceptable. Exam (Progress Note) - Constitutional Vitals: Period Temp Pulse Resp BP Sys/Roberts Pulse Ox Last 24 Hr 97.3 F-98.6 F 62-116 16-20 107-124/69-94 96-100 General appearance: normal weight - Head Head exam: Present: normal inspection - Eye Eye exam: Present: EOMI Pupils: Present: JOHANNY - ENT ENT exam: Present: normal exam - Neck Neck exam: Present: normal inspection - Respiratory Respiratory exam: Present: clear to auscultation bilaterally. Absent: rhonchi, wheezes - Cardiovascular Cardiovascular exam: Present: irregular rhythm (rate in controlled and tones are quiet. PMI not localized.) - GI/Abdominal GI/Abdominal exam: Present: normal bowel sounds - Extremities Exam Extremities exam: Present: other (symmetrically cool) - Back Exam Back exam: Present: normal inspection - Neurological Exam Neurological exam: Present: alert, oriented X3 - Psychiatric Psychiatric exam: Present: normal affect, normal mood - Skin Skin exam: Present: normal color Result/EKG - Labs CBC & BMP: 02/16/17 03:37 02/16/17 03:38 Labs: Laboratory Results - last 24 hr 02/16/17 02/16/17 02/16/17 03:37 03:37 03:38 WBC 8.8 RBC 4.35 Hgb 15.2 Hct 43.6 MCV 100.2 MCH 35 H MCHC 34.9 RDW 14.2 Plt Count 189 MPV 11.0 Neut % (Auto) 61.5 Lymph % (Auto) 23.2 [place] % (Auto) 10.3 Eos % (Auto) 3.5 Baso % (Auto) 0.8 Neut # (Auto) 5.4 Lymph # (Auto) 2.0 [place] # (Auto) 0.9 H Eos # (Auto) 0.3 Baso # (Auto) 0.1 Immature Gran % 0.7 Nucleated RBC % 0.0 Immature Gran # 0.06 Nucleated RBCs # 0.00 Immature Plt Fraction 0.0 INR 1.3 PT Patient/Control Mix 14.1 Sodium 142 Potassium 4.1 Chloride 104 Carbon Dioxide 28 Anion Gap 14.1 BUN 5 L Creatinine 1.20 GFR Calculation 72 BUN/Creatinine Ratio 4.00 L Glucose 93 Calculated Osmolality 279.1 Calcium 8.0 L Magnesium 2.0 Total Bilirubin 1.20 H Direct Bilirubin 0.300 H Indirect Bilirubin 0.9 AST 49 H ALT 31 Alkaline Phosphatase 138 H Total Protein 5.1 L Albumin 2.5 L Triglycerides 68 Cholesterol 126 LDL Cholesterol 67.0 VLDL Cholesterol 13.6 HDL Cholesterol 47 Heart Disease Risk Ratio 2.68 Quality Measures - VTE Contraindication to Pharmacological VTE Prophylaxis: Already on Theraputic Agent , No Prophylaxis Needed Specialty Discharge - Follow Up or Referrals Follow up with: Adair Parrish MD [Physician] - 02/21/17 2:15 pm
[2017-02-16] MEDS: WARFARIN 5 MG TABLET PO SCH (17:09)
[2017-02-16] MEDS: ATORVASTATIN 80 MG TABLET PO SCH (21:48)
[2017-02-17 05:05] LABS: Basophils # 0.1 10*3/uL (0.0-0.2); Basophils % 0.9 % (0.0-0.8); Eosinophils # 0.4 10*3/uL (0.0-0.87); Eosinophils % 4.5 % (0.00-10.9); Hemoglobin 15.9 GM/DL (14.0-18.0); Immature Granulocytes % 0.7 %; Immature Granulocytes Absolute 0.06 #; Lymphocytes # 2.6 10*3/uL (1.4-4.0); Lymphocytes % 29.4 % (21.2-54.2); Mean Corpuscular HGB Conc 34.6 GM/DL (32-36); Mean Corpuscular Hemoglobin 34 PG (27-34); Mean Corpuscular Volume 98.9 FL (87-102); Mean Platelet Volume 10.8 FL (9.6-12.0); Monocytes # 0.8 10*3/uL (0.11-0.8); Monocytes % 9.4 % (1.7-12.7); Neutrophils # 4.9 10*3/uL (1.4-7.4); Neutrophils % 55.1 % (38.7-73.9); Platelet Count 207 T/CUMM (130-400); Red Blood Count 4.65 MC/CUMM (3.8-5.5); Red Cell Distribution Width 13.9 % (9.3-17.3); White Blood Count 8.8 T/CUMM (4-12)
[2017-02-17 05:26] LABS: INR 1.6; PT Patient Result 17.9 SECS
[2017-02-17 05:41] LABS: Calcium 8.2 MG/DL (8.5-10.1); Potassium 3.7 MMOL/L (3.5-5.1)
[2017-02-17] MEDS: ENOXAPARIN 80 MG/0.8 ML SYRINGE SUBCUT SCH ×2 (09:00→20:14)
[2017-02-17] MEDS: CARVEDILOL 12.5 MG TABLET PO SCH (09:00)
[2017-02-17] MEDS: ASPIRIN CHEW 81 MG TABLET PO SCH (09:00)
[2017-02-17] MEDS: DOCUSATE SODIUM 100 MG CAPSULE PO SCH ×2 (09:01→20:14)
[2017-02-17] MEDS: AMIODARONE 200 MG TABLET PO SCH (09:01)
[2017-02-17] MEDS: PANTOPRAZOLE 40 MG TABLET PO SCH (09:01)
--- NOTE | 2017-02-17 09:21 | Event Note ---
General Surgery Progress Note Chief complaint This patient is a 61-year-old man admitted with embolus to the right leg treated with femoral cutdown and embolectomy with on table angiogram on 2016 Dr. Parrish Interval history No events overnight. Patient is tolerating his diet just does not like the food very much. He is getting up and walking around in the hallway. He is moving his bowels and passing gas without any difficulty. His right foot feels much better. He is on Coumadin and his INR today is 1.6. Physical exam Patient is afebrile. His heart rate is irregular and tachycardic but his vital signs are otherwise unremarkable Chest is clear Heart is irregular Extremities with no edema. Good capillary refill on the right foot. Pulses are not palpable with the patient is not having any pain in the foot looks well perfused Labs Reviewed, INR 1.6 Imaging None new Assessment and plan Continue Coumadin and repeat INR tomorrow Discharge home once INR is therapeutic and we have good rate control.
[2017-02-17] MEDS ORDERED: CARVEDILOL 6.25 MG TABLET PO ONE (10:31)
--- NOTE | 2017-02-17 10:37 | Cardiology Progress Note ---
<Camille Sunshine E - Last Filed: 02/17/17 09:57> Assessment and Plan - Time spent with patient Time spent with patient: Greater than 30 minutes Time spent discussing smoking cessation with patient: 3 to 10 minutes (1) Left ventricular apical thrombus Status: Chronic Assessment and plan: Lovenox until INR therapeutic. Daily monitoring of INR. Current Visit: Yes (2) PAF (paroxysmal atrial fibrillation) Status: Chronic Assessment and plan: The past 48 hours has been in atrial fib/atrial flutter. Continue oral Amiodarone. Increasing beta-lori and monitor blood pressure accordingly. Continue Lovenox until INR therapeutic. Current Visit: Yes (3) Hypertension Status: Chronic Assessment and plan: Continue beta-lori, maximize for better heart rate control Current Visit: Yes (4) Dyslipidemia Status: Chronic Assessment and plan: Because he has mildly elevated bilirubin, will decrease his lipid-lowering agent from 80 mg each evening to 20 mg each evening. Current Visit: Yes (5) Coronary artery disease Status: Chronic Assessment and plan: SEE PLAN OF CARE LISTED BELOW Current Visit: No Qualifiers: Coronary Disease-Associated Artery/Lesion type: [place] artery [place] vs. transplanted heart: [place] heart Associated angina: without angina Qualified Code(s): I25.10 - Atherosclerotic heart disease of [place] coronary artery without angina pectoris (6) Peripheral vascular disease Status: Chronic Assessment and plan: Status post intervention by Dr. Parrish. Ambulating with decreased pain in right lower extremity. Coumadin has been initiated Current Visit: No (7) Tobacco dependence Status: Chronic Assessment and plan: Greater than 5 minutes was spent today discussing the merits of tobacco cessation Current Visit: No (8) Medical non-compliance Status: Chronic Assessment and plan: Greater than 5 minutes were spent today discussing the importance of continued compliance Current Visit: No (9) Cardiomyopathy Status: Chronic Assessment and plan: Suspected to be ischemic and nonischemic. EF has improved from 20% to 40%. He is on beta lori. Rather incorporating an ALEJANDRO inhibitor, favor a rate controlling agent therefore will maximize beta-blockade. Current Visit: Yes (10) Apical mural thrombus Status: Chronic Assessment and plan: Daily INR as we anticoagulate with Lovenox and Coumadin Current Visit: No Cardiology - PN: Subj Interval history: COILED COIL INSPECTOR: DR. BERGER SUMMARY: Mr. Juan, 61WM, with a history of known CAD (STEMI 2013 requiring POBA of the proximal left patent attorney due to thrombotic occlusion), hypertension, dyslipidemia, PVD, sedentary lifestyle, noncompliance. History of left and right apical mural thrombus, intermittent atrial fibrillation, polycythemia. May 2015, patient was admitted with atrial fibrillation embolizing to his leg. Dr. Bib Valentin performed femoral-popliteal and tibial embolectomy. He was placed on Coumadin at that time however his INR was subtherapeutic on arrival (not taking due to cost). He was noted to have polycythemia during May 2015 admission but, to my knowledge, did not follow-up with hematology for further workup. Echocardiogram February 11, 2017: EF 40% (previously 20%), 3 chamber cardiac enlargement, left ventricular apical thrombus, PAP 29 mmHg + RAP. Admitted February 11, 2017 for claudication right lower extremity and was found to have thrombus in the right popliteal with some reconstitution below the knee. He was started on IV Heparin. February 13, 2017, patient underwent right popliteal and superficial femoral embolectomy performed by Dr. Parrish. He has tolerated the procedure well and remained on telemetry unit. FEBRUARY 15, 2017: This morning, patient reports right lower extremity is feeling better. Physical therapy has been consulted to ambulate patient. He remains on IV heparin. Coumadin was reinitiated last evening. Dr. Parrish feels that as soon as INR is therapeutic, he is agreeable for discharge. This morning, patient was started on oral Amiodarone as he is having paroxysms of normal sinus rhythm. Will continue to monitor his labs closely. Will further discuss with Dr. Berger and await additional recommendations. FEBRUARY 17, 2017: Patient improving and ready for discharge. INR remains subtherapeutic at 1.6. Patient remains in atrial fibrillation/atrial flutter, heart rate averaging 79 - 129 bpm with Amiodarone 200 mg orally daily. Total and direct bilirubin slightly elevated. At this time I will decrease his Atorvastatin to 20mg each evening. Patient is to continue Lovenox until INR therapeutic and hopefully will be discharged over the weekend. I discussed with Dr. Berger and I will increase his Coreg today, closely monitoring his blood pressure. Also, will receive a one-time dose of Coumadin 10 mg this evening with continued monitoring of INR daily. ASSESSMENT/PLAN: 1. THROMBUS RIGHT POPLITEAL ARTERY WITH CLAUDICATION - now status post revascularization 2. LEFT VENTRICULAR APICAL THROMBUS - Lovenox, Coumadin 3. PAROXYSMAL ATRIAL FIBRILLATION -continue amiodarone orally daily. Patient has been taking 12.5 mg Coreg twice daily with systolic blood pressure averaging 110s. Will increase to 25 mg orally twice daily. Bilirubin slightly elevated. LFTs in the morning. Continue to monitor telemetry. 4. CARDIOMYOPATHY - suspected to be combined ischemic and nonischemic. EF improved from 20% to 40%. On beta-lori. Will incorporate ALEJANDRO inhibitor when blood pressure will allow. 5. HYPERTENSION - adequately controlled on beta-lori. Blood pressure will not allow for introduction of an ALEJANDRO inhibitor 6. DYSLIPIDEMIA - LDL 67. Will decrease Atorvastatin due to mildly elevated bilirubin and will follow labs 7. NONCOMPLIANCE - reiterated the importance of continued medical compliance and follow-up 8. HIGH RISK MEDICATION - continue Lovenox until INR therapeutic. 9. CAD - stable without complaints of angina 10. TOBACCO USE - greater than 5 minutes was spent today discussing the merits of tobacco cessation Exam (Progress Note) - Constitutional Vitals: Period Temp Pulse Resp BP Sys/Roberts Pulse Ox Last 24 Hr 96.9 F-98.2 F 79-129 16-20 114-142/78-108 96-98 Exam: General: [Appears well with no apparent distress.] [Pleasant and cooperative. ] [Appears comfortable.] HEENT: [Normocephalic, atraumatic. Mucous membranes moist. No jaundice noted. Conjunctiva moist and clear, sclerae anicteric] Neck: No JVD/HJR, no thyromegaly or lymphadenopathy noted. No carotid bruit appreciated Cardiac: [Regular rate and rhythm.] [No obvious murmur rub or gallop.] Lungs: [Clear to auscultation without accessory muscle use to assist the respiratory pattern.] Not requiring oxygen Abdomen: Soft, bowel sounds normoactive. Nontender and nondistended. No abdominal bruit or thrill noted. No masses noted. Musculoskeletal: No fluid collection. Decreased range of motion is noted. Extremities: Right groin access site stable without hematoma. No clubbing, cyanosis noted. [ No edema noted.] Upper extremity pulses 2+. Lower extremity occult palpate. Capillary refill less than 3 seconds. Skin: No unusual lesions or rashes. No skin breakdown appreciated. Neuro: Awake, alert and oriented 3. Moves all extremities well without hemiparesis or paralysis. No essential tremor is appreciated. Result/EKG - Labs CBC & BMP: 02/17/17 04:35 02/17/17 04:35 Lab Results: I have reviewed the past 24 hour labs Labs: Laboratory Results - last 24 hr 02/17/17 02/17/17 02/17/17 04:35 04:35 04:36 WBC 8.8 RBC 4.65 Hgb 15.9 Hct 46.0 MCV 98.9 MCH 34 MCHC 34.6 RDW 13.9 Plt Count 207 MPV 10.8 Neut % (Auto) 55.1 Lymph % (Auto) 29.4 [place] % (Auto) 9.4 Eos % (Auto) 4.5 Baso % (Auto) 0.9 H Neut # (Auto) 4.9 Lymph # (Auto) 2.6 [place] # (Auto) 0.8 Eos # (Auto) 0.4 Baso # (Auto) 0.1 Immature Gran % 0.7 Nucleated RBC % 0.0 Immature Gran # 0.06 Nucleated RBCs # 0.00 Immature Plt Fraction 0.0 INR 1.6 PT Patient/Control Mix 17.9 D Sodium 143 Potassium 3.7 Chloride 105 Carbon Dioxide 29 Anion Gap 12.7 BUN 6 L Creatinine 1.30 GFR Calculation 65 BUN/Creatinine Ratio 4.00 L Glucose 97 Calculated Osmolality 282.0 Calcium 8.2 L Magnesium 2.0 - EKG EKG results: interpreted by hi EKG shows: atrial fibrillation (Atrial flutter) Quality Measures - VTE Contraindication to Pharmacological VTE Prophylaxis: Already on Theraputic Agent , No Prophylaxis Needed Specialty Discharge - Follow Up or Referrals Follow up with: Adair Parrish MD [Physician] - 02/21/17 2:15 pm <Kayleigh Berger - Last Filed: 02/17/17 14:48> Assessment and Plan (1) Atrial fibrillation with RVR Status: Deleted Current Visit: No (2) Coronary artery disease Status: Chronic Current Visit: No Qualifiers: Coronary Disease-Associated Artery/Lesion type: [place] artery [place] vs. transplanted heart: [place] heart Associated angina: without angina Qualified Code(s): I25.10 - Atherosclerotic heart disease of [place] coronary artery without angina pectoris (3) Medical non-compliance Status: Chronic Current Visit: No (4) Peripheral vascular disease Status: Chronic Current Visit: No (5) Dyslipidemia Status: Deleted Current Visit: Yes Cardiology - PN: Subj Interval history: I saw and examined Mr. Juan today. Mrs. Juan was at the bedside. He appears to be in atrial flutter on telemetry at this time his INR is up to 1.6 he has been up and walking in the halls. We plan to discharge him tomorrow if his INR is continued to increase. With him being on amiodarone he will likely require relatively lower dose. His INR is increased we will decrease his Coumadin only to 5 mg tonight. Anticipate discharge tomorrow. Exam (Progress Note) - Constitutional Vitals: Period Temp Pulse Resp BP Sys/Roberts Pulse Ox Last 24 Hr 96.9 F-98.2 F 79-129 16-20 114-142/78-108 96-99 Result/EKG - Labs CBC & BMP: 02/17/17 04:35 02/17/17 04:35 Labs: Laboratory Results - last 24 hr 02/17/17 02/17/17 02/17/17 04:35 04:35 04:36 WBC 8.8 RBC 4.65 Hgb 15.9 Hct 46.0 MCV 98.9 MCH 34 MCHC 34.6 RDW 13.9 Plt Count 207 MPV 10.8 Neut % (Auto) 55.1 Lymph % (Auto) 29.4 [place] % (Auto) 9.4 Eos % (Auto) 4.5 Baso % (Auto) 0.9 H Neut # (Auto) 4.9 Lymph # (Auto) 2.6 [place] # (Auto) 0.8 Eos # (Auto) 0.4 Baso # (Auto) 0.1 Immature Gran % 0.7 Nucleated RBC % 0.0 Immature Gran # 0.06 Nucleated RBCs # 0.00 Immature Plt Fraction 0.0 INR 1.6 PT Patient/Control Mix 17.9 D Sodium 143 Potassium 3.7 Chloride 105 Carbon Dioxide 29 Anion Gap 12.7 BUN 6 L Creatinine 1.30 GFR Calculation 65 BUN/Creatinine Ratio 4.00 L Glucose 97 Calculated Osmolality 282.0 Calcium 8.2 L Magnesium 2.0
[2017-02-17] MEDS ORDERED: WARFARIN 10 MG TABLET PO ONE (18:00)
[2017-02-17] MEDS: CARVEDILOL 25 MG TABLET PO SCH (20:13)
[2017-02-17] MEDS: ATORVASTATIN 20 MG TABLET PO SCH (20:14)
[2017-02-18 04:52] LABS: Basophils # 0.1 10*3/uL (0.0-0.2); Eosinophils # 0.4 10*3/uL (0.0-0.87); Eosinophils % 4.5 % (0.00-10.9); Hematocrit 46.6 VOL% (42.0-52.0); Hemoglobin 16.1 GM/DL (14.0-18.0); Immature Granulocytes % 0.8 %; Immature Granulocytes Absolute 0.07 #; Lymphocytes # 2.8 10*3/uL (1.4-4.0); Lymphocytes % 30.2 % (21.2-54.2); Mean Corpuscular HGB Conc 34.5 GM/DL (32-36); Mean Corpuscular Hemoglobin 34 PG (27-34); Mean Corpuscular Volume 99.4 FL (87-102); Mean Platelet Volume 11.2 FL (9.6-12.0); Monocytes # 0.9 10*3/uL (0.11-0.8); Monocytes % 9.1 % (1.7-12.7); Neutrophils # 5.1 10*3/uL (1.4-7.4); Neutrophils % 54.4 % (38.7-73.9); Platelet Count 220 T/CUMM (130-400); Red Blood Count 4.69 MC/CUMM (3.8-5.5); Red Cell Distribution Width 13.7 % (9.3-17.3); White Blood Count 9.3 T/CUMM (4-12)
[2017-02-18 05:25] LABS: INR 1.7; PT Patient Result 18.6 SECS
[2017-02-18 05:27] LABS: Calcium 8.3 MG/DL (8.5-10.1); Magnesium 2.1 MG/DL (1.8-2.4); Potassium 4.1 MMOL/L (3.5-5.1)
[2017-02-18] MEDS: DOCUSATE SODIUM 100 MG CAPSULE PO SCH ×2 (08:54→21:34)
[2017-02-18] MEDS: AMIODARONE 200 MG TABLET PO SCH (08:54)
[2017-02-18] MEDS: ASPIRIN CHEW 81 MG TABLET PO SCH (08:54)
[2017-02-18] MEDS: CARVEDILOL 25 MG TABLET PO SCH ×2 (08:55→21:34)
[2017-02-18] MEDS: PANTOPRAZOLE 40 MG TABLET PO SCH (08:55)
[2017-02-18] MEDS: ENOXAPARIN 80 MG/0.8 ML SYRINGE SUBCUT SCH ×2 (08:55→21:34)
[2017-02-18] MEDS ORDERED: WARFARIN 7.5 MG TABLET PO ONE (09:51)
--- NOTE | 2017-02-18 09:54 | Cardiology Progress Note ---
Assessment and Plan (1) Coronary artery disease Status: Chronic Current Visit: No Qualifiers: Coronary Disease-Associated Artery/Lesion type: [place] artery [place] vs. transplanted heart: [place] heart Associated angina: without angina Qualified Code(s): I25.10 - Atherosclerotic heart disease of [place] coronary artery without angina pectoris (2) Medical non-compliance Status: Chronic Current Visit: No (3) Peripheral vascular disease Status: Chronic Current Visit: No (4) Atrial fibrillation Status: Chronic Current Visit: Yes Qualifiers: Atrial fibrillation type: persistent Qualified Code(s): I48.1 - Persistent atrial fibrillation (5) Apical mural thrombus Status: Chronic Current Visit: No Cardiology - PN: Subj Interval history: Mr. Juan has no complaints today. He has been up and walking. His INR was moving very nicely but has stalled. I will increase his warfarin dose. He continues to be coarse A. fib/flutter. We cannot anticoagulate him because of his embolic event. Continue anticoagulation working toward a goal INR of 2 is a minimum. Exam (Progress Note) - Constitutional Vitals: Period Temp Pulse Resp BP Sys/Roberts Pulse Ox Last 24 Hr 97 F-97.8 F 82-100 16-20 108-128/79-88 93-99 General appearance: normal weight - Eye Eye exam: Present: EOMI Pupils: Present: JOHANNY - Respiratory Respiratory exam: Present: clear to auscultation bilaterally - Cardiovascular Cardiovascular exam: Present: irregular rhythm - GI/Abdominal GI/Abdominal exam: Present: normal bowel sounds - Extremities Exam Extremities exam: Present: other (Stable) - Neurological Exam Neurological exam: Present: alert, oriented X3 Result/EKG - Labs CBC & BMP: 02/18/17 02:57 02/18/17 02:57 Labs: Laboratory Results - last 24 hr 02/18/17 02/18/17 02/18/17 02:57 02:57 02:57 WBC 9.3 RBC 4.69 Hgb 16.1 Hct 46.6 MCV 99.4 MCH 34 MCHC 34.5 RDW 13.7 Plt Count 220 MPV 11.2 Neut % (Auto) 54.4 Lymph % (Auto) 30.2 [place] % (Auto) 9.1 Eos % (Auto) 4.5 Baso % (Auto) 1.0 H Neut # (Auto) 5.1 Lymph # (Auto) 2.8 [place] # (Auto) 0.9 H Eos # (Auto) 0.4 Baso # (Auto) 0.1 Immature Gran % 0.8 Nucleated RBC % 0.0 Immature Gran # 0.07 Nucleated RBCs # 0.00 Immature Plt Fraction 0.0 INR 1.7 PT Patient/Control Mix 18.6 Sodium 143 Potassium 4.1 Chloride 105 Carbon Dioxide 30 Anion Gap 12.1 BUN 6 L Creatinine 1.20 GFR Calculation 70 BUN/Creatinine Ratio 5.00 L Glucose 92 Calculated Osmolality 282.0 Calcium 8.3 L Magnesium 2.1 Quality Measures - VTE Contraindication to Pharmacological VTE Prophylaxis: Already on Theraputic Agent , No Prophylaxis Needed Specialty Discharge - Follow Up or Referrals Follow up with: Adair Parrish MD [Physician] - 02/21/17 2:15 pm
[2017-02-18] MEDS ORDERED: WARFARIN 5 MG TABLET PO SCH (18:00)
--- NOTE | 2017-02-18 18:09 | Event Note ---
General Surgery Progress Note Chief complaint This patient is a 61-year-old man admitted with embolus to the right leg treated with femoral cutdown and embolectomy with on table angiogram on 2016 Dr. Parrish Interval history No events overnight. Patient has no complaints. Tolerating diet. INR is 1.7 today. Coumadin was increased by Dr. Mathis. Physical exam Patient is afebrile. Vital signs were unremarkable Chest is clear Heart is irregular Extremities with no edema. Good capillary refill on the right foot. Pulses are not palpable with the patient is not having any pain in the foot looks well perfused Labs Reviewed, INR 1.7 Imaging None new Assessment and plan Continue Coumadin and repeat INR tomorrow Discharge home once INR is therapeutic
[2017-02-18] MEDS: ATORVASTATIN 20 MG TABLET PO SCH (21:34)
[2017-02-19 05:47] LABS: Basophils # 0.1 10*3/uL (0.0-0.2); Basophils % 1.2 % (0.0-0.8); Eosinophils # 0.4 10*3/uL (0.0-0.87); Eosinophils % 5.4 % (0.00-10.9); Hematocrit 42.5 VOL% (42.0-52.0); Hemoglobin 14.6 GM/DL (14.0-18.0); Immature Granulocytes % 0.8 %; Immature Granulocytes Absolute 0.06 #; Lymphocytes # 2.3 10*3/uL (1.4-4.0); Lymphocytes % 29.9 % (21.2-54.2); Mean Corpuscular HGB Conc 34.4 GM/DL (32-36); Mean Corpuscular Hemoglobin 34 PG (27-34); Monocytes # 0.9 10*3/uL (0.11-0.8); Monocytes % 11.2 % (1.7-12.7); Neutrophils # 3.9 10*3/uL (1.4-7.4); Neutrophils % 51.5 % (38.7-73.9); Platelet Count 212 T/CUMM (130-400); Red Blood Count 4.25 MC/CUMM (3.8-5.5); Red Cell Distribution Width 13.8 % (9.3-17.3); White Blood Count 7.6 T/CUMM (4-12)
[2017-02-19 06:10] LABS: INR 2.1
[2017-02-19 06:11] LABS: PT Patient Result 22.7 SECS
[2017-02-19 06:15] LABS: Magnesium 1.9 MG/DL (1.8-2.4); Osmolality,Calculated 277.3 MOS/KG (273-304); Potassium 4.2 MMOL/L (3.5-5.1)
[2017-02-19 08:34] VITALS: BP 104/71
--- NOTE | 2017-02-19 09:07 | Discharge Summary ---
Hospital Course - Hospital Course Hospital Course: This is a 61-year-old patient previously seen by me in the clinic but lost to follow-up for a significant amount of time due to loss of insurance. The patient came to the hospital with a complaint of leg pain he was found to have an embolic event in the right femoral. He had an LV thrombus and also atrial fibrillation. The LV thrombus has previously been documented the patient has been off warfarin for some time. The thrombus in the right leg was felt to be cardioembolic source either from the LV thrombus or the left atrial appendage from atrial fibrillation he was initiated on anticoagulation taken the operating room for gnosticist of flow by Dr. Parrish. The patient was admitted the general surgery service but after his surgery his care was basically directed anticoagulation and treatment of his atrial fibrillation. His INR had been drifting out slowly and had to had 2 days in excess of 1.8 and his low molecular weight heparin will be discontinued and he will be discharged home with an INR of 2.1. His old dose of Coumadin was 2 mg however he has been a little more difficult anticoagulate this time he has been on 5 daily except for 1 dose of 7.5 to go from 1.8-2.1. He will be discharged home on 5 mg daily along with his other medications and we will recheck an INR later this week in the office. The discharge medication process is too cumbersome for me to entirely figure out. I printed his many medications as I could to clarify. The patient was given hand written prescriptions for the following medications: 1. Enteric-coated aspirin 80 mg 1 p.o. daily #30 with 5 refills 2. Atorvastatin calcium 80 mg p.o. nightly #30 with 5 refills 3. Amiodarone 200 mg tablets #31 p.o. daily 4. Carvedilol 25 mg 1 p.o. twice daily #60 with 5 refills 5. Coumadin 5 mg 1 p.o. daily at 1800 hrs. #30 with 5 refills 6. Protonix 40 mg 1 p.o. daily #30 with 5 refills He is to continue [place] as prior to admission was not given a prescription for this controlled substance. Please ensure that the chart correctly indicates these of the patient's discharge medications. Nursing should give counseling and education on these medications - Time spent with patient Time with patient DS: Greater than 30 minutes Diagnosis - Discharge Diagnosis (1) Coronary artery disease Status: Chronic (2) Medical non-compliance Status: Chronic (3) Peripheral vascular disease Status: Chronic (4) Atrial fibrillation Status: Chronic (5) Apical mural thrombus Status: Chronic Specialty Discharge - Follow Up or Referrals Follow up with: Adair Parrish MD [Physician] - 02/21/17 2:15 pm Kayleigh Pagan DO [Physician] - 2 Weeks (INR to be drawn on 02/23/[address] [facility] [address] Pagan in 2 weeks with ECG) Discharge Plan - Discharge Data Disposition: Disch To Home/Self Care Condition at Discharge: Stable Discharge Diet: other (coumadin restrictions) Activity: resume usual activities as tolerated Hygiene: no restrictions, may shower Weight Bearing at Discharge: full weight bearing, weight bear as tolerated Driving: no restrictions Contact your physician if you experience:: fever over 101, Difficulty voiding, Redness or swelling, Nausea/Vomiting, Shortness of breath, Bleeding, pain uncontrolled by pain medications - Discharge Medications New traMADol TAB [Ultram] 50 mg PO Q6H PRN #20 tablet PRN Reason: Pain Atorvastatin [Lipitor] 20 mg PO BEDTIME #30 tablet Pantoprazole Tab [Protonix Tab] 40 mg PO DAILY #30 tablet Warfarin [Coumadin] 5 mg PO DAILY@1800 #30 tablet Aspirin EC Tab 81 mg PO DAILY #30 tablet Amiodarone Tab [Cordarone Tab] 200 mg PO DAILY #30 tablet Carvedilol [Coreg] 25 mg PO BID #60 tablet Continue HYDROcodone/ACETAMIN 10-325 [[place] 10-325] 1 tablet PO Q4H PRN #30 tablet PRN Reason: Pain Moderate (4-7) Discontinued Aspirin Chew Tab 81 mg PO DAILY tablet Carvedilol [Coreg] 12.5 mg PO BID #60 tablet Warfarin [Coumadin] 5 mg PO DAILY@1800 #14 tablet Atorvastatin [Lipitor] 80 mg PO BEDTIME #30 tablet Amiodarone Tab [Cordarone Tab] 200 mg PO BID Docusate Sodium [Colace] 100 mg PO BID - Follow Up or Referral Follow Up: Adair Parrish MD [Physician] - 02/21/17 2:15 pm Kayleigh Pagan DO [Physician] - 2 Weeks (INR to be drawn on 02/23/[address] [facility] [address] Pagan in 2 weeks with ECG) - Forms/Instructions Instructions: Warfarin (By mouth), Atrial Fibrillation (DC), Peripheral Vascular Disorders (DC) Exam - Constitutional Vitals: Period Temp Pulse Resp BP Sys/Roberts Pulse Ox Last 24 Hr 97.2 F-98.5 F 60-102 16-75 101-120/61-80 96-99 General appearance: normal weight - Head Head exam: Present: normal inspection - Eye Eye exam: Present: EOMI Pupils: Present: JOHANNY - Respiratory Respiratory exam: Present: clear to auscultation bilaterally - Cardiovascular Cardiovascular exam: Present: irregular rhythm - GI/Abdominal GI/Abdominal exam: Present: normal bowel sounds - Extremities Exam Extremities exam: Present: normal inspection, other (Symmetrically cool) - Back Exam Back exam: Present: normal inspection - Neurological Exam Neurological exam: Present: alert, oriented X3 Discharge Results Procedures and tests throughout hospitalization: Pending Orders 02/20/17 04:00 BMP w/ Mg [Basic Metabolic Panel w/Mg] IN AM CBC [Comp Blood Count Auto Diff] IN AM Prothrombin Time INR IN AM Labs on day of discharge: Labs from last 24 hours 02/19/17 02/19/17 02/19/17 05:20 05:20 05:20 WBC 7.6 RBC 4.25 Hgb 14.6 Hct 42.5 MCV 100.0 MCH 34 MCHC 34.4 RDW 13.8 Plt Count 212 MPV 11.0 Neut % (Auto) 51.5 Lymph % (Auto) 29.9 [place] % (Auto) 11.2 Eos % (Auto) 5.4 Baso % (Auto) 1.2 H Neut # (Auto) 3.9 Lymph # (Auto) 2.3 [place] # (Auto) 0.9 H Eos # (Auto) 0.4 Baso # (Auto) 0.1 Immature Gran % 0.8 Nucleated RBC % 0.0 Immature Gran # 0.06 Nucleated RBCs # 0.00 Immature Plt Fraction 0.0 INR 2.1 PT Patient/Control Mix 22.7 D Sodium 141 Potassium 4.2 Chloride 105 Carbon Dioxide 29 Anion Gap 11.2 BUN 4 L Creatinine 1.20 GFR Calculation 71 BUN/Creatinine Ratio 3.00 L Glucose 98 Calculated Osmolality 277.3 Calcium 8.0 L Magnesium 1.9 - Imaging and Cardiology Cardiology Procedure: image reviewed by me, report reviewed by me DS: Provider Date of admission: 02/11/17 22:35 Primary care physician: . No PCP Attending physician on admission: Adair Parrish MD Consults: 02/12/17 13:15 Consult to Physician [CONS] Routine Comment: A-fib with RVR, CAD, CHF Consulting Provider: Consult to Specialist Group: Cardiology When should Consulting Provider be notified: Now Person Notified: Dr. Cedeño Date Notified: 02/12/17 Time Notified: 13:20 02/13/17 09:38 Consult to Anesthesiology [CONS] Routine Consulting Provider: Reason for Anesthesiology: Pre-op Clearance Discharging clinician: Kayleigh Pagan DO Expected date of discharge: 02/19/17
[2017-02-19] MEDS: PANTOPRAZOLE 40 MG TABLET PO SCH (09:19)
[2017-02-19] MEDS: DOCUSATE SODIUM 100 MG CAPSULE PO SCH (09:19)
[2017-02-19] MEDS: ENOXAPARIN 80 MG/0.8 ML SYRINGE SUBCUT SCH (09:19)
[2017-02-19] MEDS: ASPIRIN CHEW 81 MG TABLET PO SCH (09:19)
[2017-02-19] MEDS: AMIODARONE 200 MG TABLET PO SCH (09:19)
[2017-02-19] MEDS: CARVEDILOL 25 MG TABLET PO SCH (09:19)
[2017-02-19] MEDS ORDERED: WARFARIN 5 MG TABLET PO SCH (18:00)
== END 2017-02-19 12:50 | disposition home or self-care (01) | DRG 253 ==
LOC: N.ED 17:20 → N.EDINP 22:35 → N.3E 23:36 → N.TELES 02-12 14:54
PROVIDERS: ADMIT Surgery; ATTEND Surgery

== ENCOUNTER 2018-05-07 14:52 | Inpatient (IN) ==
[2018-05-07 18:28] LABS: Basophils # 0.1 10*3/uL (0.0-0.2); Basophils % 0.7 % (0.0-0.8); Eosinophils # 0.2 10*3/uL (0.0-0.87); Eosinophils % 1.7 % (0.00-10.9); Hematocrit 50.4 VOL% (42.0-52.0); Hemoglobin 17.3 GM/DL (14.0-18.0); Immature Granulocytes % 0.7 %; Immature Granulocytes Absolute 0.07 #; Lymphocytes # 2.9 10*3/uL (1.4-4.0); Lymphocytes % 27.1 % (21.2-54.2); Mean Corpuscular HGB Conc 34.3 GM/DL (32-36); Mean Corpuscular Hemoglobin 34 PG (27-34); Mean Platelet Volume 10.2 FL (9.6-12.0); Monocytes # 1.1 10*3/uL (0.11-0.8); Monocytes % 10.4 % (1.7-12.7); Neutrophils # 6.3 10*3/uL (1.4-7.4); Neutrophils % 59.4 % (38.7-73.9); Platelet Count 180 T/CUMM (130-400); Red Blood Count 5.09 MC/CUMM (3.8-5.5); Red Cell Distribution Width 14.3 % (9.3-17.3); White Blood Count 10.5 T/CUMM (4-12)
[2018-05-07 18:38] LABS: Calcium 8.9 MG/DL (8.5-10.1); Osmolality,Calculated 271.8 MOS/KG (273-304); Potassium 3.8 MMOL/L (3.5-5.1)
[2018-05-07 18:43] LABS: INR 1.1; PT Patient Result 11.2 SECS; Partial Thromboplastin Time 29.9 SECS (0-40)
[2018-05-07] MEDS ORDERED: ENOXAPARIN 80 MG/0.8 ML SYRINGE SUBCUT STA (19:38)
[2018-05-07] MEDS ORDERED: SODIUM CHLORIDE 0.9% 1,000 ML IV STA (19:38)
[2018-05-07] MEDS ORDERED: ONDANSETRON 4 MG/2 ML VIAL IV PRN (21:14)
[2018-05-07] MEDS ORDERED: ACETAMINOPHEN 325 MG TABLET PO PRN (21:14)
[2018-05-08] MEDS ORDERED: PANTOPRAZOLE 40 MG TABLET PO SCH (09:00)
[2018-05-08] MEDS ORDERED: ATORVASTATIN 80 MG TABLET PO SCH (13:00)
[2018-05-08] MEDS: CARVEDILOL 25 MG TABLET PO SCH (21:29)
[2018-05-08] MEDS: ATORVASTATIN 80 MG TABLET PO SCH (21:29)
[2018-05-09] MEDS ORDERED: VANCOMYCIN INJ 1,000 MG in SODIUM CHLORIDE 0.9% 250 ML IV ONE (09:00)
[2018-05-09] MEDS: AMIODARONE 200 MG TABLET PO SCH (11:51)
[2018-05-09] MEDS: ASPIRIN EC 81 MG TABLET PO SCH (11:52)
[2018-05-09] MEDS: PANTOPRAZOLE 40 MG TABLET PO SCH (11:52)
[2018-05-09] MEDS: CARVEDILOL 25 MG TABLET PO SCH ×2 (11:52→21:36)
[2018-05-09] MEDS ORDERED: HEPARIN 1,000 UNIT/1 ML VIAL ONE (12:31)
[2018-05-09] MEDS ORDERED: VANCOMYCIN 500 MG VIAL ONE (12:32)
[2018-05-09] MEDS ORDERED: MIDAZOLAM 2 MG/2 ML VIAL ONE (17:10)
[2018-05-09] MEDS ORDERED: SEVOFLURANE 1 UNIT/15 MINUTE INH ONE (17:10)
[2018-05-09] MEDS ORDERED: HEPARIN 10,000 UNIT/10 ML VIAL ONE (17:10)
[2018-05-09] MEDS ORDERED: SODIUM CHLORIDE 0.9% 250 ML IV ONE (17:11)
[2018-05-09] MEDS ORDERED: fentaNYL 100 MCG/2 ML VIAL ONE (17:11)
[2018-05-09] MEDS ORDERED: ONDANSETRON 4 MG/2 ML VIAL ONE ×2 (17:11→17:23)
[2018-05-09] MEDS ORDERED: ROCURONIUM 100 MG/10 ML VIAL IV ONE (17:11)
[2018-05-09] MEDS ORDERED: PHENYLEPHRINE 10 MG/1 ML VIAL IV ONE (17:11)
[2018-05-09] MEDS ORDERED: PHENYLEPHRINE 1 MG/10 ML SYRINGE IV ONE (17:11)
[2018-05-09] MEDS ORDERED: LACTATED RINGERS 1,000 ML IV ONE (17:11)
[2018-05-09] MEDS: HYDROmorphone 2 MG/1 ML VIAL IV PRN ×3 (17:25→23:36)
[2018-05-09] MEDS ORDERED: GLUCAGON 1 MG VIAL IM PRN (18:33)
[2018-05-09] MEDS ORDERED: DEXTROSE 50% 25 GM/50 ML VIAL IV PRN (18:33)
[2018-05-09] MEDS: LACTATED RINGERS 1,000 ML IV SCH (18:40)
[2018-05-09] MEDS: ATORVASTATIN 80 MG TABLET PO SCH (20:17)
[2018-05-10] MEDS: LACTATED RINGERS 1,000 ML IV SCH ×3 (02:46→22:56)
[2018-05-10] MEDS: HYDROmorphone 2 MG/1 ML VIAL IV PRN ×5 (03:47→21:33)
[2018-05-10 04:39] LABS: Hematocrit 38.2 VOL% (42.0-52.0)
[2018-05-10 05:06] LABS: Calcium 7.6 MG/DL (8.5-10.1); Osmolality,Calculated 273.7 MOS/KG (273-304); Potassium 3.8 MMOL/L (3.5-5.1)
[2018-05-10 05:14] LABS: Hemoglobin 12.5 GM/DL (14.0-18.0)
[2018-05-10] MEDS ORDERED: ASPIRIN CHEW 81 MG TABLET PO SCH (09:00)
[2018-05-10] MEDS: CARVEDILOL 25 MG TABLET PO SCH ×2 (09:01→20:21)
[2018-05-10] MEDS: ASPIRIN EC 81 MG TABLET PO SCH (09:52)
[2018-05-10] MEDS: PANTOPRAZOLE 40 MG TABLET PO SCH (09:52)
[2018-05-10] MEDS: AMIODARONE 200 MG TABLET PO SCH (09:52)
[2018-05-10] MEDS: ENOXAPARIN 40 MG/0.4 ML SYRINGE SUBCUT SCH (12:46)
[2018-05-10] MEDS ORDERED: KETAMINE 500 MG/10 ML VIAL ONE (12:54)
[2018-05-10] MEDS: WARFARIN 5 MG TABLET PO SCH (18:44)
[2018-05-10] MEDS: ATORVASTATIN 80 MG TABLET PO SCH (20:21)
[2018-05-10] MEDS: CILOSTAZOL 100 MG TABLET PO SCH (20:21)
[2018-05-11] MEDS: LACTATED RINGERS 1,000 ML IV SCH (03:03)
[2018-05-11] MEDS: HYDROmorphone 2 MG/1 ML VIAL IV PRN ×3 (04:22→21:29)
[2018-05-11 04:56] LABS: Hematocrit 35.5 VOL% (42.0-52.0); Hemoglobin 11.5 GM/DL (14.0-18.0)
[2018-05-11 05:03] LABS: PT Patient Result 10.9 SECS
[2018-05-11] MEDS: CARVEDILOL 25 MG TABLET PO SCH ×2 (08:12→21:19)
[2018-05-11] MEDS: PANTOPRAZOLE 40 MG TABLET PO SCH (08:13)
[2018-05-11] MEDS: ASPIRIN EC 81 MG TABLET PO SCH (08:13)
[2018-05-11] MEDS: CILOSTAZOL 100 MG TABLET PO SCH ×2 (08:13→21:19)
[2018-05-11] MEDS: AMIODARONE 200 MG TABLET PO SCH (08:13)
[2018-05-11] MEDS: ENOXAPARIN 40 MG/0.4 ML SYRINGE SUBCUT SCH (10:45)
[2018-05-11] MEDS: WARFARIN 5 MG TABLET PO SCH (17:52)
[2018-05-11] MEDS: ATORVASTATIN 80 MG TABLET PO SCH (21:19)
[2018-05-12] MEDS: LACTATED RINGERS 1,000 ML IV SCH (00:48)
[2018-05-12 05:49] LABS: Hemoglobin 12.2 GM/DL (14.0-18.0)
[2018-05-12] MEDS: PANTOPRAZOLE 40 MG TABLET PO SCH (09:06)
[2018-05-12] MEDS: CILOSTAZOL 100 MG TABLET PO SCH ×2 (09:06→20:44)
[2018-05-12] MEDS: CARVEDILOL 25 MG TABLET PO SCH ×2 (09:06→20:44)
[2018-05-12] MEDS: HYDROmorphone 2 MG/1 ML VIAL IV PRN ×2 (09:07→11:38)
[2018-05-12] MEDS: AMIODARONE 200 MG TABLET PO SCH (09:07)
[2018-05-12] MEDS: ASPIRIN EC 81 MG TABLET PO SCH (09:07)
[2018-05-12] MEDS: ENOXAPARIN 40 MG/0.4 ML SYRINGE SUBCUT SCH (11:29)
[2018-05-12] MEDS ORDERED: HEPARIN 5,000 UNIT/1 ML VIAL IV ONE (13:38)
[2018-05-12] MEDS ORDERED: DIGOXIN 0.25 MG TABLET PO ONE (13:49)
[2018-05-12 14:09] LABS: Basophils % 0.3 % (0.0-0.8); Eosinophils # 0.1 10*3/uL (0.0-0.87); Eosinophils % 0.3 % (0.00-10.9); Hematocrit 30.9 VOL% (42.0-52.0); Hemoglobin 10.4 GM/DL (14.0-18.0); Immature Granulocytes % 0.5 %; Immature Granulocytes Absolute 0.08 #; Lymphocytes # 1.8 10*3/uL (1.4-4.0); Lymphocytes % 12.3 % (21.2-54.2); Mean Corpuscular HGB Conc 33.7 GM/DL (32-36); Mean Corpuscular Hemoglobin 34 PG (27-34); Mean Platelet Volume 11.1 FL (9.6-12.0); Monocytes # 1.3 10*3/uL (0.11-0.8); Neutrophils # 11.6 10*3/uL (1.4-7.4); Neutrophils % 77.6 % (38.7-73.9); Platelet Count 188 T/CUMM (130-400); Red Blood Count 3.09 MC/CUMM (3.8-5.5); Red Cell Distribution Width 14.1 % (9.3-17.3); White Blood Count 14.9 T/CUMM (4-12)
[2018-05-12 14:24] LABS: Calcium 7.7 MG/DL (8.5-10.1); Osmolality,Calculated 267.1 MOS/KG (273-304); Potassium 3.4 MMOL/L (3.5-5.1)
[2018-05-12] MEDS: HEPARIN DRIP 25,000 UNITS/500 ML PREMIX IV SCH (14:40)
[2018-05-12] MEDS: dilTIAZem Drip 125 MG/125 ML PREMIX IV SCH (14:40)
[2018-05-12] MEDS: WARFARIN 5 MG TABLET PO SCH (17:10)
[2018-05-12] MEDS: POTASSIUM CHLORIDE 20 MEQ TABLET PO PRN ×2 (17:10→19:08)
[2018-05-12] MEDS: ONDANSETRON 4 MG/2 ML VIAL IV PRN (19:08)
[2018-05-12] MEDS: ATORVASTATIN 80 MG TABLET PO SCH (20:44)
[2018-05-13] MEDS: dilTIAZem Drip 125 MG/125 ML PREMIX IV SCH ×2 (02:31→14:58)
[2018-05-13] MEDS: POTASSIUM CHLORIDE 20 MEQ TABLET PO PRN (02:32)
[2018-05-13] MEDS: LACTATED RINGERS 1,000 ML IV SCH (02:53)
[2018-05-13 04:27] LABS: Basophils % 0.2 % (0.0-0.8); Eosinophils % 0.2 % (0.00-10.9); Hematocrit 33.4 VOL% (42.0-52.0); Hemoglobin 11.5 GM/DL (14.0-18.0); Immature Granulocytes % 0.9 %; Immature Granulocytes Absolute 0.11 #; Lymphocytes % 7.8 % (21.2-54.2); Mean Corpuscular HGB Conc 34.4 GM/DL (32-36); Mean Corpuscular Hemoglobin 34 PG (27-34); Mean Corpuscular Volume 98.8 FL (87-102); Mean Platelet Volume 11.7 FL (9.6-12.0); Monocytes # 1.2 10*3/uL (0.11-0.8); Monocytes % 9.3 % (1.7-12.7); Neutrophils # 10.2 10*3/uL (1.4-7.4); Neutrophils % 81.6 % (38.7-73.9); Platelet Count 163 T/CUMM (130-400); Red Blood Count 3.38 MC/CUMM (3.8-5.5); Red Cell Distribution Width 13.8 % (9.3-17.3); White Blood Count 12.5 T/CUMM (4-12)
[2018-05-13] MEDS: HYDROmorphone 2 MG/1 ML VIAL IV PRN (09:40)
[2018-05-13] MEDS: ONDANSETRON 4 MG/2 ML VIAL IV PRN (09:42)
[2018-05-13] MEDS: AMIODARONE 200 MG TABLET PO SCH (09:48)
[2018-05-13] MEDS: CILOSTAZOL 100 MG TABLET PO SCH ×2 (09:48→20:47)
[2018-05-13] MEDS: ASPIRIN EC 81 MG TABLET PO SCH (09:48)
[2018-05-13] MEDS: CARVEDILOL 25 MG TABLET PO SCH ×2 (09:48→20:45)
[2018-05-13] MEDS: PANTOPRAZOLE 40 MG TABLET PO SCH (09:48)
[2018-05-13] MEDS: HEPARIN DRIP 25,000 UNITS/500 ML PREMIX IV SCH (13:55)
[2018-05-13] MEDS: DIGOXIN 0.125 MG TABLET PO SCH (13:56)
[2018-05-13] MEDS: WARFARIN 5 MG TABLET PO SCH (17:40)
[2018-05-13] MEDS: ATORVASTATIN 80 MG TABLET PO SCH (20:46)
[2018-05-14 04:30] LABS: INR 2.4
[2018-05-14 04:32] LABS: Calcium 7.6 MG/DL (8.5-10.1); Osmolality,Calculated 269.1 MOS/KG (273-304); Potassium 3.6 MMOL/L (3.5-5.1)
[2018-05-14 04:48] LABS: Basophils % 0.3 % (0.0-0.8); Eosinophils # 0.1 10*3/uL (0.0-0.87); Eosinophils % 0.7 % (0.00-10.9); Hematocrit 32.3 VOL% (42.0-52.0); Immature Granulocytes % 0.6 %; Immature Granulocytes Absolute 0.07 #; Lymphocytes % 8.7 % (21.2-54.2); Mean Corpuscular HGB Conc 34.1 GM/DL (32-36); Mean Corpuscular Hemoglobin 34 PG (27-34); Mean Corpuscular Volume 99.1 FL (87-102); Mean Platelet Volume 12.4 FL (9.6-12.0); Monocytes # 1.1 10*3/uL (0.11-0.8); Monocytes % 9.5 % (1.7-12.7); Neutrophils # 9.4 10*3/uL (1.4-7.4); Neutrophils % 80.2 % (38.7-73.9); Red Blood Count 3.26 MC/CUMM (3.8-5.5); Red Cell Distribution Width 14.1 % (9.3-17.3); White Blood Count 11.8 T/CUMM (4-12)
[2018-05-14 04:49] LABS: Platelet Count 114 T/CUMM (130-400)
[2018-05-14 05:11] LABS: Acanthocytes 1+; Anisocytosis Slight; Hypochromasia Slight; Macrocytosis Slight; Platelet Estimate Decreased
[2018-05-14] MEDS: CILOSTAZOL 100 MG TABLET PO SCH ×2 (09:02→20:54)
[2018-05-14] MEDS: CARVEDILOL 25 MG TABLET PO SCH ×2 (09:02→20:54)
[2018-05-14] MEDS: DILTIAZEM 30 MG TABLET PO SCH ×4 (09:02→20:54)
[2018-05-14] MEDS: AMIODARONE 200 MG TABLET PO SCH (09:03)
[2018-05-14] MEDS: PANTOPRAZOLE 40 MG TABLET PO SCH (09:03)
[2018-05-14] MEDS: ASPIRIN EC 81 MG TABLET PO SCH (09:03)
[2018-05-14] MEDS: DIGOXIN 0.125 MG TABLET PO SCH (13:34)
[2018-05-14] MEDS: ATORVASTATIN 80 MG TABLET PO SCH (20:54)
[2018-05-15 04:33] LABS: Basophils % 0.2 % (0.0-0.8); Eosinophils # 0.1 10*3/uL (0.0-0.87); Eosinophils % 0.4 % (0.00-10.9); Hematocrit 35.2 VOL% (42.0-52.0); Hemoglobin 11.8 GM/DL (14.0-18.0); Immature Granulocytes % 0.7 %; Immature Granulocytes Absolute 0.11 #; Lymphocytes # 1.3 10*3/uL (1.4-4.0); Lymphocytes % 8.5 % (21.2-54.2); Mean Corpuscular HGB Conc 33.5 GM/DL (32-36); Mean Corpuscular Hemoglobin 33 PG (27-34); Mean Corpuscular Volume 98.6 FL (87-102); Mean Platelet Volume 11.1 FL (9.6-12.0); Monocytes # 1.4 10*3/uL (0.11-0.8); Monocytes % 9.2 % (1.7-12.7); Neutrophils # 12.5 10*3/uL (1.4-7.4); Platelet Count 246 T/CUMM (130-400); Red Blood Count 3.57 MC/CUMM (3.8-5.5); Red Cell Distribution Width 14.1 % (9.3-17.3); White Blood Count 15.5 T/CUMM (4-12)
[2018-05-15 04:37] LABS: INR 4.4
[2018-05-15 04:39] LABS: PT Patient Result 43.6 SECS
[2018-05-15 05:01] LABS: Calcium 7.9 MG/DL (8.5-10.1); Osmolality,Calculated 266.2 MOS/KG (273-304); Potassium 3.7 MMOL/L (3.5-5.1)
[2018-05-15 08:28] LABS: INR 4.5
[2018-05-15 08:29] LABS: PT Patient Result 45.2 SECS
[2018-05-15] MEDS: DILTIAZEM 30 MG TABLET PO SCH ×4 (09:39→20:43)
[2018-05-15] MEDS: AMIODARONE 200 MG TABLET PO SCH (09:39)
[2018-05-15] MEDS: CILOSTAZOL 100 MG TABLET PO SCH ×2 (09:39→20:43)
[2018-05-15] MEDS: ASPIRIN EC 81 MG TABLET PO SCH (09:39)
[2018-05-15] MEDS: PANTOPRAZOLE 40 MG TABLET PO SCH (09:39)
[2018-05-15] MEDS: CARVEDILOL 25 MG TABLET PO SCH ×3 (09:40→20:43)
[2018-05-15] MEDS: DIGOXIN 0.125 MG TABLET PO SCH (14:43)
[2018-05-15] MEDS: HYDROmorphone 2 MG/1 ML VIAL IV PRN (17:40)
[2018-05-15] MEDS: HEPARIN DRIP 25,000 UNITS/500 ML PREMIX IV SCH (18:22)
[2018-05-15] MEDS: ATORVASTATIN 80 MG TABLET PO SCH (20:43)
[2018-05-16 04:44] LABS: Basophils % 0.2 % (0.0-0.8); Eosinophils # 0.1 10*3/uL (0.0-0.87); Eosinophils % 0.5 % (0.00-10.9); Hematocrit 30.7 VOL% (42.0-52.0); Hemoglobin 10.7 GM/DL (14.0-18.0); Immature Granulocytes % 1.4 %; Immature Granulocytes Absolute 0.24 #; Lymphocytes # 1.5 10*3/uL (1.4-4.0); Mean Corpuscular HGB Conc 34.9 GM/DL (32-36); Mean Corpuscular Hemoglobin 34 PG (27-34); Mean Corpuscular Volume 96.5 FL (87-102); Mean Platelet Volume 10.6 FL (9.6-12.0); Monocytes # 1.7 10*3/uL (0.11-0.8); Monocytes % 9.9 % (1.7-12.7); Neutrophils # 13.2 10*3/uL (1.4-7.4); Platelet Count 268 T/CUMM (130-400); Red Blood Count 3.18 MC/CUMM (3.8-5.5); Red Cell Distribution Width 13.9 % (9.3-17.3); White Blood Count 16.8 T/CUMM (4-12)
[2018-05-16 05:01] LABS: INR 4.2
[2018-05-16 05:12] LABS: Calcium 7.5 MG/DL (8.5-10.1); Osmolality,Calculated 265.4 MOS/KG (273-304); Potassium 3.2 MMOL/L (3.5-5.1)
[2018-05-16 05:17] LABS: PT Patient Result 41.6 SECS
[2018-05-16] MEDS: CARVEDILOL 25 MG TABLET PO SCH ×2 (08:37→20:48)
[2018-05-16] MEDS: AMIODARONE 200 MG TABLET PO SCH (08:37)
[2018-05-16] MEDS: POTASSIUM CHLORIDE 20 MEQ TABLET PO PRN ×3 (08:37→17:02)
[2018-05-16] MEDS: DILTIAZEM 30 MG TABLET PO SCH ×4 (08:37→20:48)
[2018-05-16] MEDS: CILOSTAZOL 100 MG TABLET PO SCH ×2 (08:37→20:48)
[2018-05-16] MEDS: ASPIRIN EC 81 MG TABLET PO SCH (08:38)
[2018-05-16] MEDS: PANTOPRAZOLE 40 MG TABLET PO SCH (08:38)
[2018-05-16] MEDS: DIGOXIN 0.125 MG TABLET PO SCH (13:16)
[2018-05-16] MEDS: ATORVASTATIN 80 MG TABLET PO SCH (20:48)
[2018-05-16] MEDS: PHYTONADIONE 5 MG/5 ML ORAL.SYR PO SCH (21:33)
[2018-05-17 04:20] LABS: Basophils # 0.1 10*3/uL (0.0-0.2); Basophils % 0.3 % (0.0-0.8); Eosinophils # 0.2 10*3/uL (0.0-0.87); Eosinophils % 0.9 % (0.00-10.9); Hematocrit 32.6 VOL% (42.0-52.0); Hemoglobin 11.1 GM/DL (14.0-18.0); Immature Granulocytes Absolute 0.38 #; Lymphocytes # 1.6 10*3/uL (1.4-4.0); Lymphocytes % 8.4 % (21.2-54.2); Mean Corpuscular Hemoglobin 33 PG (27-34); Mean Corpuscular Volume 96.7 FL (87-102); Mean Platelet Volume 10.5 FL (9.6-12.0); Monocytes # 1.7 10*3/uL (0.11-0.8); Monocytes % 9.1 % (1.7-12.7); Neutrophils # 14.8 10*3/uL (1.4-7.4); Neutrophils % 79.3 % (38.7-73.9); Platelet Count 334 T/CUMM (130-400); Red Blood Count 3.37 MC/CUMM (3.8-5.5); Red Cell Distribution Width 14.4 % (9.3-17.3); White Blood Count 18.6 T/CUMM (4-12)
[2018-05-17 04:29] LABS: INR 1.8; PT Patient Result 19.4 SECS
[2018-05-17 04:36] LABS: Calcium 7.5 MG/DL (8.5-10.1); Osmolality,Calculated 262.5 MOS/KG (273-304); Potassium 3.7 MMOL/L (3.5-5.1)
[2018-05-17] MEDS: ASPIRIN EC 81 MG TABLET PO SCH (09:57)
[2018-05-17] MEDS: CARVEDILOL 25 MG TABLET PO SCH ×2 (09:57→21:27)
[2018-05-17] MEDS: POTASSIUM CHLORIDE 20 MEQ TABLET PO PRN (09:57)
[2018-05-17] MEDS: PANTOPRAZOLE 40 MG TABLET PO SCH (09:58)
[2018-05-17] MEDS: AMIODARONE 200 MG TABLET PO SCH (09:58)
[2018-05-17] MEDS: CILOSTAZOL 100 MG TABLET PO SCH ×2 (09:58→21:27)
[2018-05-17] MEDS: DILTIAZEM 30 MG TABLET PO SCH ×4 (09:58→21:27)
[2018-05-17] MEDS: ASCORBIC ACID 500 MG TABLET PO SCH ×2 (12:17→21:27)
[2018-05-17] MEDS: PHYTONADIONE 5 MG/5 ML ORAL.SYR PO SCH (12:17)
[2018-05-17] MEDS: DIGOXIN 0.125 MG TABLET PO SCH (13:35)
[2018-05-17] MEDS: ATORVASTATIN 80 MG TABLET PO SCH (21:27)
[2018-05-18 05:37] LABS: PT Patient Result 11.1 SECS
[2018-05-18 05:44] LABS: Basophils # 0.1 10*3/uL (0.0-0.2); Basophils % 0.3 % (0.0-0.8); Eosinophils # 0.1 10*3/uL (0.0-0.87); Eosinophils % 0.6 % (0.00-10.9); Hematocrit 31.9 VOL% (42.0-52.0); Hemoglobin 10.8 GM/DL (14.0-18.0); Immature Granulocytes % 3.2 %; Immature Granulocytes Absolute 0.64 #; Lymphocytes # 1.6 10*3/uL (1.4-4.0); Lymphocytes % 7.9 % (21.2-54.2); Mean Corpuscular HGB Conc 33.9 GM/DL (32-36); Mean Corpuscular Hemoglobin 32 PG (27-34); Mean Corpuscular Volume 94.7 FL (87-102); Mean Platelet Volume 10.3 FL (9.6-12.0); Monocytes # 1.9 10*3/uL (0.11-0.8); Monocytes % 9.4 % (1.7-12.7); Neutrophils # 15.9 10*3/uL (1.4-7.4); Neutrophils % 78.6 % (38.7-73.9); Platelet Count 405 T/CUMM (130-400); Red Blood Count 3.37 MC/CUMM (3.8-5.5); Red Cell Distribution Width 14.3 % (9.3-17.3); White Blood Count 20.3 T/CUMM (4-12)
[2018-05-18 05:56] LABS: Calcium 7.5 MG/DL (8.5-10.1); Osmolality,Calculated 263.5 MOS/KG (273-304); Potassium 3.6 MMOL/L (3.5-5.1)
[2018-05-18] MEDS ORDERED: VANCOMYCIN INJ 1,000 MG in SODIUM CHLORIDE 0.9% 250 ML IV ONE (06:30)
[2018-05-18 06:36] LABS: Band Neutrophils 2 % (0-10); Eosinophils 1 % (0-10); Lymphocytes 8 % (20-55); Metamyelocytes 2 %; Segmented Neutrophils 74 % (50-85); Total Cells Counted 100
[2018-05-18 06:37] LABS: Platelet Estimate Increased
[2018-05-18] MEDS ORDERED: VANCOMYCIN 1,000 MG VIAL ONE (06:53)
[2018-05-18] MEDS ORDERED: HYDROmorphone 2 MG/1 ML VIAL ONE (07:58)
[2018-05-18] MEDS ORDERED: BUPIVACAINE 0.5% 50 ML VIAL ONE (08:11)
[2018-05-18] MEDS ORDERED: MEPERIDINE 25 MG/1 ML VIAL IV PRN (08:28)
[2018-05-18] MEDS ORDERED: diphenhydrAMINE 50 MG/1 ML VIAL IV PRN (08:28)
[2018-05-18] MEDS ORDERED: HYDROmorphone 2 MG/1 ML VIAL IV PRN (08:28)
[2018-05-18] MEDS ORDERED: PROMETHAZINE INJ 25 MG in SODIUM CHLORIDE 0.9% 50 ML IV PRN (08:28)
[2018-05-18] MEDS ORDERED: MORPHINE 10 MG/1 ML VIAL IV PRN (08:28)
[2018-05-18] MEDS ORDERED: ONDANSETRON 4 MG/2 ML VIAL IV PRN (08:28)
[2018-05-18] MEDS ORDERED: NALOXONE 0.4 MG/ML VIAL IV PRN (08:35)
[2018-05-18] MEDS ORDERED: PROPOFOL 200 MG/20 ML VIAL IV ONE (08:53)
[2018-05-18] MEDS ORDERED: SEVOFLURANE 1 UNIT/15 MINUTE INH ONE (08:53)
[2018-05-18] MEDS ORDERED: fentaNYL 100 MCG/2 ML VIAL ONE (08:53)
[2018-05-18] MEDS ORDERED: MIDAZOLAM 2 MG/2 ML VIAL ONE (08:53)
[2018-05-18] MEDS ORDERED: KETOROLAC 30 MG/1 ML VIAL ONE (08:54)
[2018-05-18] MEDS ORDERED: ETOMIDATE 40 MG/20 ML VIAL IV ONE (08:54)
[2018-05-18] MEDS ORDERED: PHENYLEPHRINE 1 MG/10 ML SYRINGE IV ONE (08:54)
[2018-05-18] MEDS ORDERED: ONDANSETRON 4 MG/2 ML VIAL ONE (08:54)
[2018-05-18] MEDS: SODIUM CHLORIDE 0.9% 1,000 ML IV SCH (09:15)
[2018-05-18] MEDS: HYDROmorphone PCA 30 MG/30 ML SYRINGE IV SCH (15:11)
[2018-05-18] MEDS: PANTOPRAZOLE 40 MG TABLET PO SCH (15:15)
[2018-05-18] MEDS: ASCORBIC ACID 500 MG TABLET PO SCH ×2 (15:15→20:54)
[2018-05-18] MEDS: KETOROLAC 10 MG TABLET PO SCH ×3 (15:16→23:31)
[2018-05-18] MEDS: CILOSTAZOL 100 MG TABLET PO SCH ×2 (15:17→20:54)
[2018-05-18] MEDS: DIGOXIN 0.125 MG TABLET PO SCH (15:18)
[2018-05-18] MEDS: CARVEDILOL 25 MG TABLET PO SCH ×2 (15:18→20:54)
[2018-05-18] MEDS: AMIODARONE 200 MG TABLET PO SCH (15:18)
[2018-05-18] MEDS: DILTIAZEM 30 MG TABLET PO SCH ×3 (15:19→20:54)
[2018-05-18] MEDS: ASPIRIN EC 81 MG TABLET PO SCH (15:19)
[2018-05-18] MEDS: ATORVASTATIN 80 MG TABLET PO SCH (20:54)
[2018-05-19] MEDS: KETOROLAC 10 MG TABLET PO SCH ×5 (05:50→23:30)
[2018-05-19 06:13] LABS: Basophils # 0.1 10*3/uL (0.0-0.2); Basophils % 0.5 % (0.0-0.8); Eosinophils # 0.2 10*3/uL (0.0-0.87); Eosinophils % 1.1 % (0.00-10.9); Hematocrit 31.6 VOL% (42.0-52.0); Hemoglobin 10.8 GM/DL (14.0-18.0); Immature Granulocytes % 5.3 %; Immature Granulocytes Absolute 0.78 #; Lymphocytes # 1.5 10*3/uL (1.4-4.0); Lymphocytes % 10.2 % (21.2-54.2); Mean Corpuscular HGB Conc 34.2 GM/DL (32-36); Mean Corpuscular Hemoglobin 33 PG (27-34); Mean Corpuscular Volume 96.6 FL (87-102); Mean Platelet Volume 10.2 FL (9.6-12.0); Monocytes # 1.4 10*3/uL (0.11-0.8); Monocytes % 9.3 % (1.7-12.7); Neutrophils # 10.9 10*3/uL (1.4-7.4); Neutrophils % 73.6 % (38.7-73.9); Platelet Count 447 T/CUMM (130-400); Red Blood Count 3.27 MC/CUMM (3.8-5.5); Red Cell Distribution Width 14.8 % (9.3-17.3); White Blood Count 14.8 T/CUMM (4-12)
[2018-05-19 06:27] LABS: Calcium 7.3 MG/DL (8.5-10.1); Osmolality,Calculated 265.4 MOS/KG (273-304); Potassium 3.7 MMOL/L (3.5-5.1)
[2018-05-19 06:32] LABS: PT Patient Result 10.7 SECS
[2018-05-19 07:18] LABS: Band Neutrophils 7 % (0-10); Eosinophils 1 % (0-10); Lymphocytes 11 % (20-55); Segmented Neutrophils 72 % (50-85); Total Cells Counted 100
[2018-05-19 07:19] LABS: Anisocytosis 1+; Giant Platelets Few; Macrocytosis Slight; Platelet Estimate Normal; Smudge Cells Few
[2018-05-19] MEDS: ENOXAPARIN 30 MG/0.3 ML SYRINGE SUBCUT SCH ×2 (08:14→21:12)
[2018-05-19] MEDS: CILOSTAZOL 100 MG TABLET PO SCH ×2 (08:15→21:13)
[2018-05-19] MEDS: DILTIAZEM 30 MG TABLET PO SCH ×4 (08:15→21:13)
[2018-05-19] MEDS: ASPIRIN EC 81 MG TABLET PO SCH (08:15)
[2018-05-19] MEDS: CARVEDILOL 25 MG TABLET PO SCH ×2 (08:15→21:13)
[2018-05-19] MEDS: ASCORBIC ACID 500 MG TABLET PO SCH ×2 (08:15→21:13)
[2018-05-19] MEDS: AMIODARONE 200 MG TABLET PO SCH (08:16)
[2018-05-19] MEDS: PANTOPRAZOLE 40 MG TABLET PO SCH (08:16)
[2018-05-19] MEDS: HYDROmorphone PCA 30 MG/30 ML SYRINGE IV SCH (11:59)
[2018-05-19] MEDS: SODIUM CHLORIDE 0.9% 1,000 ML IV SCH (15:26)
[2018-05-19] MEDS: DIGOXIN 0.125 MG TABLET PO SCH (15:27)
[2018-05-19] MEDS: WARFARIN 5 MG TABLET PO SCH (18:12)
[2018-05-19] MEDS: ATORVASTATIN 80 MG TABLET PO SCH (21:13)
[2018-05-20] MEDS: KETOROLAC 10 MG TABLET PO SCH ×3 (05:04→17:45)
[2018-05-20 06:33] LABS: Basophils # 0.1 10*3/uL (0.0-0.2); Basophils % 0.3 % (0.0-0.8); Eosinophils # 0.1 10*3/uL (0.0-0.87); Eosinophils % 0.3 % (0.00-10.9); Hemoglobin 10.6 GM/DL (14.0-18.0); Immature Granulocytes % 3.8 %; Lymphocytes # 1.4 10*3/uL (1.4-4.0); Lymphocytes % 5.8 % (21.2-54.2); Mean Corpuscular HGB Conc 34.2 GM/DL (32-36); Mean Corpuscular Hemoglobin 33 PG (27-34); Mean Corpuscular Volume 96.9 FL (87-102); Monocytes # 2.1 10*3/uL (0.11-0.8); Monocytes % 8.9 % (1.7-12.7); Neutrophils # 19.1 10*3/uL (1.4-7.4); Neutrophils % 80.9 % (38.7-73.9); Platelet Count 473 T/CUMM (130-400); Red Cell Distribution Width 14.8 % (9.3-17.3); White Blood Count 23.6 T/CUMM (4-12)
[2018-05-20 06:47] LABS: Calcium 7.2 MG/DL (8.5-10.1); Osmolality,Calculated 263.5 MOS/KG (273-304); Potassium 3.9 MMOL/L (3.5-5.1)
[2018-05-20 06:48] LABS: INR 1.1; PT Patient Result 12.1 SECS
[2018-05-20 07:14] LABS: Band Neutrophils 1 % (0-10); Lymphocytes 5 % (20-55); Segmented Neutrophils 86 % (50-85)
[2018-05-20 07:15] LABS: Platelet Estimate Normal
[2018-05-20 07:16] LABS: Total Cells Counted 100
[2018-05-20] MEDS: DILTIAZEM 30 MG TABLET PO SCH (09:39)
[2018-05-20] MEDS: ENOXAPARIN 30 MG/0.3 ML SYRINGE SUBCUT SCH ×2 (09:39→21:03)
[2018-05-20] MEDS: CARVEDILOL 25 MG TABLET PO SCH ×2 (09:40→21:03)
[2018-05-20] MEDS: ASPIRIN EC 81 MG TABLET PO SCH (09:40)
[2018-05-20] MEDS: ASCORBIC ACID 500 MG TABLET PO SCH ×2 (09:40→21:03)
[2018-05-20] MEDS: PANTOPRAZOLE 40 MG TABLET PO SCH (09:40)
[2018-05-20] MEDS: AMIODARONE 200 MG TABLET PO SCH (09:40)
[2018-05-20] MEDS: CILOSTAZOL 100 MG TABLET PO SCH ×2 (09:44→21:03)
[2018-05-20] MEDS: SODIUM CHLORIDE 0.9% 1,000 ML IV SCH ×2 (09:44→09:45)
[2018-05-20] MEDS: HYDROmorphone PCA 30 MG/30 ML SYRINGE IV SCH (09:59)
[2018-05-20] MEDS: DILTIAZEM 60 MG TABLET PO SCH ×3 (13:33→21:03)
[2018-05-20] MEDS: DIGOXIN 0.125 MG TABLET PO SCH (13:42)
[2018-05-20] MEDS: WARFARIN 5 MG TABLET PO SCH (17:44)
[2018-05-20] MEDS: ATORVASTATIN 80 MG TABLET PO SCH (21:03)
[2018-05-21] MEDS: KETOROLAC 10 MG TABLET PO SCH ×4 (01:04→17:09)
[2018-05-21 05:41] LABS: Basophils # 0.1 10*3/uL (0.0-0.2); Basophils % 0.2 % (0.0-0.8); Eosinophils # 0.1 10*3/uL (0.0-0.87); Eosinophils % 0.2 % (0.00-10.9); Hemoglobin 9.8 GM/DL (14.0-18.0); Immature Granulocytes % 4.2 %; Immature Granulocytes Absolute 1.04 #; Lymphocytes # 1.5 10*3/uL (1.4-4.0); Lymphocytes % 5.8 % (21.2-54.2); Mean Corpuscular HGB Conc 33.8 GM/DL (32-36); Mean Corpuscular Hemoglobin 33 PG (27-34); Mean Corpuscular Volume 96.3 FL (87-102); Mean Platelet Volume 10.3 FL (9.6-12.0); Monocytes % 7.8 % (1.7-12.7); Neutrophils # 20.5 10*3/uL (1.4-7.4); Neutrophils % 81.8 % (38.7-73.9); Platelet Count 509 T/CUMM (130-400); Red Blood Count 3.01 MC/CUMM (3.8-5.5); Red Cell Distribution Width 14.9 % (9.3-17.3)
[2018-05-21 05:49] LABS: Calcium 7.1 MG/DL (8.5-10.1); Osmolality,Calculated 262.8 MOS/KG (273-304)
[2018-05-21 05:53] LABS: INR 1.5; PT Patient Result 15.9 SECS
[2018-05-21 06:06] LABS: Band Neutrophils 3 % (0-10); Hypochromasia 1+; Lymphocytes 2 % (20-55); Ovalocytes Slight; Platelet Estimate Increased; Segmented Neutrophils 87 % (50-85); Total Cells Counted 100
[2018-05-21] MEDS: DILTIAZEM 60 MG TABLET PO SCH ×4 (08:26→21:51)
[2018-05-21] MEDS: ENOXAPARIN 30 MG/0.3 ML SYRINGE SUBCUT SCH ×2 (08:26→21:50)
[2018-05-21] MEDS: ASPIRIN EC 81 MG TABLET PO SCH (08:26)
[2018-05-21] MEDS: HYDROmorphone PCA 30 MG/30 ML SYRINGE IV SCH (08:26)
[2018-05-21] MEDS: PANTOPRAZOLE 40 MG TABLET PO SCH (08:26)
[2018-05-21] MEDS: CILOSTAZOL 100 MG TABLET PO SCH ×2 (08:26→21:51)
[2018-05-21] MEDS: ASCORBIC ACID 500 MG TABLET PO SCH ×2 (08:26→21:51)
[2018-05-21] MEDS: AMIODARONE 200 MG TABLET PO SCH (08:26)
[2018-05-21] MEDS: CARVEDILOL 25 MG TABLET PO SCH ×2 (08:26→21:51)
[2018-05-21] MEDS: DIGOXIN 0.125 MG TABLET PO SCH (13:06)
[2018-05-21] MEDS: WARFARIN 5 MG TABLET PO SCH (17:08)
[2018-05-21] MEDS: SODIUM CHLORIDE 0.9% 1,000 ML IV SCH (17:08)
[2018-05-21] MEDS: ATORVASTATIN 80 MG TABLET PO SCH (21:51)
[2018-05-22] MEDS: KETOROLAC 10 MG TABLET PO SCH ×3 (02:36→12:30)
[2018-05-22 05:54] LABS: Basophils # 0.1 10*3/uL (0.0-0.2); Basophils % 0.2 % (0.0-0.8); Eosinophils # 0.1 10*3/uL (0.0-0.87); Eosinophils % 0.4 % (0.00-10.9); Hematocrit 28.7 VOL% (42.0-52.0); Hemoglobin 9.8 GM/DL (14.0-18.0); Immature Granulocytes % 3.3 %; Lymphocytes # 1.6 10*3/uL (1.4-4.0); Lymphocytes % 6.5 % (21.2-54.2); Mean Corpuscular HGB Conc 34.1 GM/DL (32-36); Mean Corpuscular Hemoglobin 33 PG (27-34); Mean Platelet Volume 10.1 FL (9.6-12.0); Monocytes # 1.8 10*3/uL (0.11-0.8); Monocytes % 7.2 % (1.7-12.7); Neutrophils % 82.4 % (38.7-73.9); Platelet Count 504 T/CUMM (130-400); Red Blood Count 3.02 MC/CUMM (3.8-5.5); Red Cell Distribution Width 14.9 % (9.3-17.3); White Blood Count 24.3 T/CUMM (4-12)
[2018-05-22 06:19] LABS: Lymphocytes 4 % (20-55); Segmented Neutrophils 92 % (50-85); Total Cells Counted 100
[2018-05-22 06:20] LABS: Platelet Estimate Normal
[2018-05-22 06:33] LABS: Calcium 7.2 MG/DL (8.5-10.1)
[2018-05-22 06:34] LABS: Osmolality,Calculated 263.8 MOS/KG (273-304)
[2018-05-22 06:45] LABS: INR 2.5
[2018-05-22 06:47] LABS: PT Patient Result 26.7 SECS
[2018-05-22] MEDS ORDERED: oxyCODONE/ACETAMINOPHEN 5-325 MG TABLET PO PRN ×2 (09:03)
[2018-05-22] MEDS: ASPIRIN EC 81 MG TABLET PO SCH (09:50)
[2018-05-22] MEDS: ASCORBIC ACID 500 MG TABLET PO SCH (09:50)
[2018-05-22] MEDS: CILOSTAZOL 100 MG TABLET PO SCH (09:51)
[2018-05-22] MEDS: DILTIAZEM 60 MG TABLET PO SCH (09:51)
[2018-05-22] MEDS: PANTOPRAZOLE 40 MG TABLET PO SCH (09:51)
[2018-05-22] MEDS: AMIODARONE 200 MG TABLET PO SCH (09:51)
[2018-05-22] MEDS: CARVEDILOL 25 MG TABLET PO SCH (09:51)
[2018-05-22] MEDS: SODIUM CHLORIDE 0.9% 1,000 ML IV SCH (09:52)
[2018-05-22] MEDS: HYDROmorphone PCA 30 MG/30 ML SYRINGE IV SCH (09:54)
[2018-05-22 11:50] VITALS: BP 82/48
== END 2018-05-22 14:29 | DRG 253 ==
LOC: N.ED 14:52 → N.EDINP 19:39 → N.3E 20:59 → N.TELEN 05-12 14:22
PROVIDERS: ADMIT Surgery; ATTEND Surgery

== ENCOUNTER 2018-05-24 07:50 | Inpatient (IN) ==
[2018-05-24] MEDS ORDERED: ONDANSETRON 4 MG/2 ML VIAL IV PRN (12:08)
[2018-05-24] MEDS ORDERED: ACETAMINOPHEN 325 MG TABLET PO PRN (12:08)
[2018-05-24] MEDS ORDERED: oxyCODONE/ACETAMINOPHEN 5-325 MG TABLET PO PRN ×2 (12:08→12:16)
[2018-05-24] MEDS: HYDROmorphone 2 MG/1 ML VIAL IV PRN ×3 (12:50→22:03)
[2018-05-24] MEDS ORDERED: PHYTONADIONE 5 MG/5 ML ORAL.SYR PO ONE (13:00)
[2018-05-24] MEDS: DILTIAZEM 60 MG TABLET PO SCH ×3 (13:13→22:02)
[2018-05-24] MEDS: LACTATED RINGERS 1,000 ML IV SCH (13:22)
[2018-05-24] MEDS ORDERED: VANCOMYCIN INJ 1,500 MG in SODIUM CHLORIDE 0.9% 500 ML IV ONE (13:30)
[2018-05-24] MEDS ORDERED: SODIUM CHLORIDE 0.9% 1,000 ML IV PRN (15:24)
[2018-05-24] MEDS: CARVEDILOL 25 MG TABLET PO SCH (17:23)
[2018-05-24] MEDS: ATORVASTATIN 80 MG TABLET PO SCH (22:03)
[2018-05-25] MEDS: HYDROmorphone 2 MG/1 ML VIAL IV PRN ×4 (02:04→22:03)
[2018-05-25 05:39] LABS: Basophils # 0.1 10*3/uL (0.0-0.2); Basophils % 0.3 % (0.0-0.8); Eosinophils % 0.2 % (0.00-10.9); Hematocrit 29.4 VOL% (42.0-52.0); Hemoglobin 9.8 GM/DL (14.0-18.0); Immature Granulocytes % 1.9 %; Lymphocytes # 1.1 10*3/uL (1.4-4.0); Mean Corpuscular HGB Conc 33.3 GM/DL (32-36); Mean Corpuscular Hemoglobin 32 PG (27-34); Mean Corpuscular Volume 95.5 FL (87-102); Mean Platelet Volume 10.2 FL (9.6-12.0); Monocytes % 4.5 % (1.7-12.7); Neutrophils # 18.9 10*3/uL (1.4-7.4); Neutrophils % 88.1 % (38.7-73.9); Platelet Count 531 T/CUMM (130-400); Red Blood Count 3.08 MC/CUMM (3.8-5.5); Red Cell Distribution Width 15.5 % (9.3-17.3); White Blood Count 21.4 T/CUMM (4-12)
[2018-05-25 05:52] LABS: INR 1.3; PT Patient Result 13.9 SECS
[2018-05-25 06:11] LABS: Albumin 1.9 G/DL (3.4-5.0); Bilirubin,Total 1.4 MG/DL (0.2-1.0); Calcium 7.7 MG/DL (8.5-10.1); Potassium 4.2 MMOL/L (3.5-5.1); Total Protein 6.1 G/DL (6.4-8.3)
[2018-05-25 06:37] LABS: Hypochromasia Slight; Lymphocytes 4 % (20-55); Platelet Estimate Increased; Segmented Neutrophils 94 % (50-85); Total Cells Counted 100
[2018-05-25] MEDS: VANCOMYCIN INJ 1,000 MG in SODIUM CHLORIDE 0.9% 250 ML IV SCH (08:05)
[2018-05-25] MEDS: DILTIAZEM 60 MG TABLET PO SCH ×4 (08:07→21:21)
[2018-05-25] MEDS: ASPIRIN EC 81 MG TABLET PO SCH (08:07)
[2018-05-25] MEDS: CARVEDILOL 25 MG TABLET PO SCH ×2 (08:07→17:18)
[2018-05-25] MEDS: AMIODARONE 200 MG TABLET PO SCH (08:08)
[2018-05-25] MEDS: DIGOXIN 0.125 MG TABLET PO SCH (08:08)
[2018-05-25] MEDS: PANTOPRAZOLE 40 MG TABLET PO SCH (08:08)
[2018-05-25] MEDS ORDERED: PANTOPRAZOLE 40 MG TABLET PO SCH (09:00)
[2018-05-25] MEDS ORDERED: TISSUE ADHESIVE 1 EACH APPLICATOR TOP ONE (09:57)
[2018-05-25] MEDS ORDERED: fentaNYL 100 MCG/2 ML VIAL ONE (11:16)
[2018-05-25] MEDS ORDERED: PROPOFOL 200 MG/20 ML VIAL IV ONE (11:17)
[2018-05-25] MEDS ORDERED: ROCURONIUM 100 MG/10 ML VIAL IV ONE (11:17)
[2018-05-25] MEDS ORDERED: PHENYLEPHRINE 1 MG/10 ML SYRINGE IV ONE (11:18)
[2018-05-25] MEDS ORDERED: PHENYLEPHRINE 10 MG/1 ML VIAL IV ONE (11:18)
[2018-05-25] MEDS ORDERED: METOPROLOL TARTRATE 5 MG/5 ML VIAL IV ONE (11:18)
[2018-05-25] MEDS: LACTATED RINGERS 1,000 ML IV SCH (13:19)
[2018-05-25] MEDS: ATORVASTATIN 80 MG TABLET PO SCH (21:21)
[2018-05-26] MEDS: VANCOMYCIN INJ 1,000 MG in SODIUM CHLORIDE 0.9% 250 ML IV SCH ×2 (02:01→20:05)
[2018-05-26] MEDS: HYDROmorphone 2 MG/1 ML VIAL IV PRN ×2 (06:03→18:25)
[2018-05-26 06:29] LABS: Basophils % 0.3 % (0.0-0.8); Eosinophils # 0.1 10*3/uL (0.0-0.87); Eosinophils % 0.5 % (0.00-10.9); Hematocrit 30.3 VOL% (42.0-52.0); Hemoglobin 9.9 GM/DL (14.0-18.0); Immature Granulocytes % 2.1 %; Immature Granulocytes Absolute 0.33 #; Lymphocytes # 1.2 10*3/uL (1.4-4.0); Lymphocytes % 7.5 % (21.2-54.2); Mean Corpuscular HGB Conc 32.7 GM/DL (32-36); Mean Corpuscular Hemoglobin 32 PG (27-34); Mean Corpuscular Volume 97.1 FL (87-102); Mean Platelet Volume 10.1 FL (9.6-12.0); Monocytes # 1.4 10*3/uL (0.11-0.8); Monocytes % 8.8 % (1.7-12.7); Neutrophils # 12.9 10*3/uL (1.4-7.4); Neutrophils % 80.8 % (38.7-73.9); Platelet Count 505 T/CUMM (130-400); Red Blood Count 3.12 MC/CUMM (3.8-5.5); Red Cell Distribution Width 15.7 % (9.3-17.3); White Blood Count 15.9 T/CUMM (4-12)
[2018-05-26 06:35] LABS: INR 1.1; PT Patient Result 11.9 SECS
[2018-05-26 06:56] LABS: Calcium 7.4 MG/DL (8.5-10.1); Osmolality,Calculated 278.7 MOS/KG (273-304); Potassium 4.4 MMOL/L (3.5-5.1)
[2018-05-26] MEDS: PANTOPRAZOLE 40 MG TABLET PO SCH (08:17)
[2018-05-26] MEDS: DILTIAZEM 60 MG TABLET PO SCH ×4 (08:17→20:06)
[2018-05-26] MEDS: ASPIRIN EC 81 MG TABLET PO SCH (08:18)
[2018-05-26] MEDS: AMIODARONE 200 MG TABLET PO SCH (08:18)
[2018-05-26] MEDS: CARVEDILOL 25 MG TABLET PO SCH ×2 (08:18→16:02)
[2018-05-26] MEDS: DIGOXIN 0.125 MG TABLET PO SCH (08:18)
[2018-05-26] MEDS: oxyCODONE/ACETAMINOPHEN 5-325 MG TABLET PO PRN ×2 (08:18→20:05)
[2018-05-26] MEDS: LACTATED RINGERS 1,000 ML IV SCH (11:20)
[2018-05-26] MEDS ORDERED: WARFARIN 4 MG TABLET PO ONE (14:18)
[2018-05-26] MEDS ORDERED: MORPHINE 4 MG/1 ML VIAL IV PRN (18:06)
[2018-05-26] MEDS ORDERED: ASPIRIN CHEW 81 MG TABLET PO ONE (18:06)
[2018-05-26] MEDS ORDERED: NITROGLYCERIN SL 0.4 MG TABLET SL PRN (18:06)
[2018-05-26] MEDS ORDERED: ASPIRIN 325 MG TABLET ONE (18:08)
[2018-05-26] MEDS: WARFARIN 4 MG TABLET PO SCH (18:25)
[2018-05-26 18:37] LABS: Basophils % 0.2 % (0.0-0.8); Eosinophils # 0.1 10*3/uL (0.0-0.87); Eosinophils % 0.8 % (0.00-10.9); Hematocrit 28.2 VOL% (42.0-52.0); Hemoglobin 9.3 GM/DL (14.0-18.0); Immature Granulocytes % 2.1 %; Immature Granulocytes Absolute 0.28 #; Lymphocytes # 1.4 10*3/uL (1.4-4.0); Lymphocytes % 10.4 % (21.2-54.2); Mean Corpuscular Hemoglobin 32 PG (27-34); Mean Corpuscular Volume 97.9 FL (87-102); Mean Platelet Volume 10.1 FL (9.6-12.0); Monocytes # 1.1 10*3/uL (0.11-0.8); Monocytes % 8.6 % (1.7-12.7); Neutrophils # 10.1 10*3/uL (1.4-7.4); Neutrophils % 77.9 % (38.7-73.9); Platelet Count 469 T/CUMM (130-400); Red Blood Count 2.88 MC/CUMM (3.8-5.5); Red Cell Distribution Width 15.6 % (9.3-17.3)
[2018-05-26 18:48] LABS: ABG Base Excess -0.6 MMOL/L (-2.5-2.5); ABG HCO3 23.9 MMOL/L (20-26); ABG Oxygen Saturation 97.4 % (95-100); ABG PCO2 31.9 MM HG (35-48); ABG PO2 99.3 MM HG (80-95); ABG TCO2 20.7 MMOL/L (23-27)
[2018-05-26 18:52] LABS: Albumin 1.5 G/DL (3.4-5.0); Bilirubin,Total 1.1 MG/DL (0.2-1.0); Calcium 7.2 MG/DL (8.5-10.1); Osmolality,Calculated 278.8 MOS/KG (273-304); Potassium 3.9 MMOL/L (3.5-5.1); Total Protein 5.5 G/DL (6.4-8.3)
[2018-05-26] MEDS: ATORVASTATIN 80 MG TABLET PO SCH (20:06)
[2018-05-26 21:43] LABS: Troponin I < 0.015 NG/ML (0.00-0.045)
[2018-05-27 02:13] LABS: Calcium 7.2 MG/DL (8.5-10.1); Osmolality,Calculated 283.4 MOS/KG (273-304); Potassium 4.4 MMOL/L (3.5-5.1)
[2018-05-27 02:15] LABS: Basophils % 0.3 % (0.0-0.8); Eosinophils # 0.2 10*3/uL (0.0-0.87); Eosinophils % 1.5 % (0.00-10.9); Hematocrit 29.2 VOL% (42.0-52.0); Hemoglobin 9.8 GM/DL (14.0-18.0); Immature Granulocytes % 2.8 %; Immature Granulocytes Absolute 0.41 #; Lymphocytes # 1.8 10*3/uL (1.4-4.0); Lymphocytes % 12.5 % (21.2-54.2); Mean Corpuscular HGB Conc 33.6 GM/DL (32-36); Mean Corpuscular Hemoglobin 33 PG (27-34); Mean Platelet Volume 10.7 FL (9.6-12.0); Monocytes # 1.3 10*3/uL (0.11-0.8); Monocytes % 9.3 % (1.7-12.7); Neutrophils # 10.6 10*3/uL (1.4-7.4); Neutrophils % 73.6 % (38.7-73.9); Platelet Count 427 T/CUMM (130-400); Red Blood Count 2.98 MC/CUMM (3.8-5.5); Red Cell Distribution Width 15.9 % (9.3-17.3); White Blood Count 14.4 T/CUMM (4-12)
[2018-05-27 02:18] LABS: Troponin I < 0.015 NG/ML (0.00-0.045)
[2018-05-27 02:33] LABS: INR 1.1; PT Patient Result 12.3 SECS
[2018-05-27] MEDS: oxyCODONE/ACETAMINOPHEN 5-325 MG TABLET PO PRN (03:37)
[2018-05-27] MEDS: VANCOMYCIN INJ 1,000 MG in SODIUM CHLORIDE 0.9% 250 ML IV SCH ×2 (07:07→18:44)
[2018-05-27] MEDS: DIGOXIN 0.125 MG TABLET PO SCH (08:38)
[2018-05-27] MEDS: PANTOPRAZOLE 40 MG TABLET PO SCH (08:38)
[2018-05-27] MEDS: AMIODARONE 200 MG TABLET PO SCH (08:38)
[2018-05-27] MEDS: ASPIRIN EC 81 MG TABLET PO SCH (08:39)
[2018-05-27] MEDS: CARVEDILOL 25 MG TABLET PO SCH ×2 (08:39→16:51)
[2018-05-27] MEDS: DILTIAZEM 60 MG TABLET PO SCH ×4 (08:41→20:55)
[2018-05-27] MEDS ORDERED: KETOROLAC 30 MG/1 ML VIAL IV ONE (10:50)
[2018-05-27] MEDS: LACTATED RINGERS 1,000 ML IV SCH (12:00)
[2018-05-27] MEDS ORDERED: WARFARIN 5 MG TABLET PO ONE (12:02)
[2018-05-27] MEDS: KETOROLAC 10 MG TABLET PO SCH ×2 (12:12→18:22)
[2018-05-27] MEDS: WARFARIN 4 MG TABLET PO SCH (18:22)
[2018-05-27] MEDS: ATORVASTATIN 80 MG TABLET PO SCH (20:55)
[2018-05-28] MEDS: KETOROLAC 10 MG TABLET PO SCH ×4 (04:21→18:12)
[2018-05-28 04:35] LABS: Basophils # 0.1 10*3/uL (0.0-0.2); Basophils % 0.5 % (0.0-0.8); Eosinophils # 0.2 10*3/uL (0.0-0.87); Eosinophils % 1.9 % (0.00-10.9); Hematocrit 28.3 VOL% (42.0-52.0); Hemoglobin 9.3 GM/DL (14.0-18.0); Immature Granulocytes % 2.5 %; Immature Granulocytes Absolute 0.28 #; Lymphocytes # 1.5 10*3/uL (1.4-4.0); Lymphocytes % 13.6 % (21.2-54.2); Mean Corpuscular HGB Conc 32.9 GM/DL (32-36); Mean Corpuscular Hemoglobin 32 PG (27-34); Mean Corpuscular Volume 96.6 FL (87-102); Mean Platelet Volume 10.5 FL (9.6-12.0); Monocytes # 0.9 10*3/uL (0.11-0.8); Monocytes % 7.7 % (1.7-12.7); Neutrophils # 8.2 10*3/uL (1.4-7.4); Neutrophils % 73.8 % (38.7-73.9); Platelet Count 456 T/CUMM (130-400); Red Blood Count 2.93 MC/CUMM (3.8-5.5); Red Cell Distribution Width 15.6 % (9.3-17.3); White Blood Count 11.1 T/CUMM (4-12)
[2018-05-28 04:51] LABS: Calcium 6.8 MG/DL (8.5-10.1)
[2018-05-28 04:52] LABS: Osmolality,Calculated 282.3 MOS/KG (273-304); Potassium 3.6 MMOL/L (3.5-5.1)
[2018-05-28 04:55] LABS: Troponin I < 0.015 NG/ML (0.00-0.045)
[2018-05-28 05:00] LABS: INR 1.7; PT Patient Result 18.6 SECS
[2018-05-28] MEDS: VANCOMYCIN INJ 1,000 MG in SODIUM CHLORIDE 0.9% 250 ML IV SCH (07:10)
[2018-05-28] MEDS: PANTOPRAZOLE 40 MG TABLET PO SCH (09:34)
[2018-05-28] MEDS: DILTIAZEM 60 MG TABLET PO SCH ×4 (09:34→20:24)
[2018-05-28] MEDS: ASPIRIN EC 81 MG TABLET PO SCH (09:34)
[2018-05-28] MEDS: DIGOXIN 0.125 MG TABLET PO SCH (09:35)
[2018-05-28] MEDS: AMIODARONE 200 MG TABLET PO SCH (09:35)
[2018-05-28] MEDS: CARVEDILOL 25 MG TABLET PO SCH ×2 (09:35→16:34)
[2018-05-28] MEDS: WARFARIN 4 MG TABLET PO SCH (18:13)
[2018-05-28] MEDS: ATORVASTATIN 80 MG TABLET PO SCH (20:24)
[2018-05-28] MEDS: oxyCODONE/ACETAMINOPHEN 5-325 MG TABLET PO PRN (20:27)
[2018-05-28] MEDS: ZINC OXIDE PASTE 113 GM TUBE TOP SCH (20:27)
[2018-05-29] MEDS: KETOROLAC 10 MG TABLET PO SCH ×4 (00:35→18:38)
[2018-05-29] MEDS: oxyCODONE/ACETAMINOPHEN 5-325 MG TABLET PO PRN ×2 (03:36→14:00)
[2018-05-29 03:58] LABS: Basophils # 0.1 10*3/uL (0.0-0.2); Basophils % 0.7 % (0.0-0.8); Eosinophils # 0.3 10*3/uL (0.0-0.87); Eosinophils % 2.9 % (0.00-10.9); Hematocrit 28.9 VOL% (42.0-52.0); Hemoglobin 9.6 GM/DL (14.0-18.0); Immature Granulocytes % 3.6 %; Immature Granulocytes Absolute 0.31 #; Lymphocytes # 1.6 10*3/uL (1.4-4.0); Lymphocytes % 18.9 % (21.2-54.2); Mean Corpuscular HGB Conc 33.2 GM/DL (32-36); Mean Corpuscular Hemoglobin 32 PG (27-34); Mean Corpuscular Volume 97.3 FL (87-102); Mean Platelet Volume 10.1 FL (9.6-12.0); Monocytes # 0.8 10*3/uL (0.11-0.8); Monocytes % 8.7 % (1.7-12.7); Neutrophils # 5.7 10*3/uL (1.4-7.4); Neutrophils % 65.2 % (38.7-73.9); Platelet Count 420 T/CUMM (130-400); Red Blood Count 2.97 MC/CUMM (3.8-5.5); Red Cell Distribution Width 15.8 % (9.3-17.3); White Blood Count 8.7 T/CUMM (4-12)
[2018-05-29 04:20] LABS: Calcium 6.9 MG/DL (8.5-10.1); Osmolality,Calculated 279.4 MOS/KG (273-304)
[2018-05-29 05:28] LABS: INR 2.3
[2018-05-29 05:29] LABS: PT Patient Result 24.5 SECS
[2018-05-29] MEDS: DIGOXIN 0.125 MG TABLET PO SCH (08:43)
[2018-05-29] MEDS: PANTOPRAZOLE 40 MG TABLET PO SCH (08:44)
[2018-05-29] MEDS: ASPIRIN EC 81 MG TABLET PO SCH (08:44)
[2018-05-29] MEDS: CARVEDILOL 25 MG TABLET PO SCH (08:44)
[2018-05-29] MEDS: AMIODARONE 200 MG TABLET PO SCH (08:45)
[2018-05-29] MEDS: DILTIAZEM 60 MG TABLET PO SCH ×4 (08:45→20:17)
[2018-05-29] MEDS: ZINC OXIDE PASTE 113 GM TUBE TOP SCH ×2 (10:44→20:19)
[2018-05-29] MEDS: CARVEDILOL 12.5 MG TABLET PO SCH (16:42)
[2018-05-29] MEDS: WARFARIN 4 MG TABLET PO SCH (18:38)
[2018-05-29] MEDS: ATORVASTATIN 80 MG TABLET PO SCH (20:19)
[2018-05-30] MEDS: KETOROLAC 10 MG TABLET PO SCH ×2 (00:27→06:15)
[2018-05-30] MEDS: ASPIRIN EC 81 MG TABLET PO SCH (08:45)
[2018-05-30] MEDS: AMIODARONE 200 MG TABLET PO SCH (08:45)
[2018-05-30] MEDS: DILTIAZEM 60 MG TABLET PO SCH (08:45)
[2018-05-30] MEDS: CARVEDILOL 12.5 MG TABLET PO SCH (08:45)
[2018-05-30] MEDS: PANTOPRAZOLE 40 MG TABLET PO SCH (08:45)
[2018-05-30] MEDS: DIGOXIN 0.125 MG TABLET PO SCH (08:46)
[2018-05-30] MEDS: ZINC OXIDE PASTE 113 GM TUBE TOP SCH (08:47)
[2018-05-30 09:51] LABS: INR 3.3
[2018-05-30 09:53] LABS: PT Patient Result 35.5 SECS
[2018-05-30] MEDS ORDERED: SERTRALINE 25 MG TABLET PO SCH (11:30)
[2018-05-30 11:31] VITALS: BP 112/65
== END 2018-05-30 12:07 | disposition swing bed (61) | DRG 240 ==
LOC: N.2E 09:37
PROVIDERS: ADMIT Surgery; ATTEND Surgery

== ENCOUNTER 2018-06-28 12:05 | Inpatient (IN) ==
[2018-06-28] MEDS ORDERED: SODIUM CHLORIDE 0.9% 1,000 ML IV STA ×2 (12:28→14:05)
[2018-06-28] MEDS ORDERED: LORazepam 2 MG/1 ML VIAL ONE (12:33)
[2018-06-28] MEDS ORDERED: LORazepam 2 MG/1 ML VIAL IV STA (12:37)
[2018-06-28 12:39] LABS: Basophils # 0.1 10*3/uL (0.0-0.2); Basophils % 0.3 % (0.0-0.8); Hematocrit 35.4 VOL% (42.0-52.0); Hemoglobin 11.4 GM/DL (14.0-18.0); Immature Granulocytes % 0.7 %; Immature Granulocytes Absolute 0.12 #; Lymphocytes # 1.3 10*3/uL (1.4-4.0); Lymphocytes % 7.4 % (21.2-54.2); Mean Corpuscular HGB Conc 32.2 GM/DL (32-36); Mean Corpuscular Hemoglobin 31 PG (27-34); Mean Corpuscular Volume 96.5 FL (87-102); Mean Platelet Volume 11.5 FL (9.6-12.0); Monocytes # 1.1 10*3/uL (0.11-0.8); Neutrophils # 15.4 10*3/uL (1.4-7.4); Neutrophils % 85.6 % (38.7-73.9); Platelet Count 178 T/CUMM (130-400); Red Blood Count 3.67 MC/CUMM (3.8-5.5); Red Cell Distribution Width 16.2 % (9.3-17.3)
[2018-06-28 12:51] LABS: INR 2.7
[2018-06-28 12:53] LABS: PT Patient Result 28.9 SECS
[2018-06-28 13:08] LABS: Alanine Aminotransferase 72 U/L (16-61); Albumin 3.4 G/DL (3.4-5.0); Alkaline Phosphatase 142 U/L (45-117); Aspartate Amino Transferase 538 U/L (0-37); Blood Urea Nitrogen 35 MG/DL (7-18); Calcium 8.9 MG/DL (8.5-10.1); Glucose 119 MG/DL (74-106); Osmolality,Calculated 307.9 MOS/KG (273-304); Potassium 4.1 MMOL/L (3.5-5.1); Sodium 151 MMOL/L (136-145); Total Protein 8.1 G/DL (6.4-8.3)
[2018-06-28 13:09] LABS: Albumin 2.3 G/DL (3.4-5.0); Bilirubin,Direct 0.23 MG/DL (0.0-0.20); Bilirubin,Indirect 0.9 MG/DL (0.0-1.0); Bilirubin,Total 1.1 MG/DL (0.2-1.0); Total Protein 6.8 G/DL (6.4-8.3)
[2018-06-28 13:13] LABS: Lactic Acid 4.8 MMOL/L (0.4-2.0)
[2018-06-28] MEDS ORDERED: SODIUM CHLORIDE 0.9% 1,000 ML IV ONE (14:18)
[2018-06-28 14:23] LABS: Apearance,Urine Slightly Hazy (Clear); Glucose,Urine (UA) Negative (Negative); Ketones,Urine Negative (Negative); Nitrite,Urine Negative (Negative); Protein,Urine >=500 MG/DL; Urine Color Brown (Yellow)
[2018-06-28 14:24] LABS: Bilirubin,Urine Negative (Negative); Blood, Urine Trace mg/dL (Negative); Urine Urobilinogen 0.2 EU/DL (0.2-1.0)
[2018-06-28] MEDS ORDERED: NOREPINEPHRINE 4 MG/4 ML VIAL IV ONE (14:26)
[2018-06-28] MEDS ORDERED: SODIUM CHLORIDE 0.9% 250 ML IV ONE (14:26)
[2018-06-28 14:27] LABS: Amorphous Crystals,Urine Moderate /HPF (Few); Bacteria,Urine Few /HPF (Few); RBC,Urine 0-2 /HPF (0-4)
[2018-06-28] MEDS ORDERED: VANCOMYCIN INJ 1,000 MG in SODIUM CHLORIDE 0.9% 250 ML IV ONE (14:30)
[2018-06-28] MEDS ORDERED: AZTREONAM 2,000 MG in SODIUM CHLORIDE 0.9% 100 ML IV SCH (14:30)
[2018-06-28] MEDS ORDERED: LEVOFLOXACIN INJ 750 MG in PREMIX 1 EACH IV STA (14:31)
[2018-06-28] MEDS ORDERED: ONDANSETRON 4 MG/2 ML VIAL IV PRN (14:33)
[2018-06-28] MEDS: NOREPINEPHRINE 8 MG in SODIUM CHLORIDE 0.9% 242 ML IV PRN ×2 (14:45→23:08)
[2018-06-28] MEDS: SODIUM CHLORIDE 0.9% 1,000 ML IV SCH (16:25)
[2018-06-28] MEDS: ZINC OXIDE PASTE 113 GM TUBE TOP SCH (20:43)
[2018-06-28] MEDS: DOCUSATE SODIUM 100 MG CAPSULE PO SCH (20:44)
[2018-06-29] MEDS: SODIUM CHLORIDE 0.9% 1,000 ML IV SCH ×2 (00:25→09:11)
[2018-06-29 06:22] LABS: Calcium 7.7 MG/DL (8.5-10.1)
[2018-06-29 06:23] LABS: Osmolality,Calculated 305.7 MOS/KG (273-304); Potassium 3.5 MMOL/L (3.5-5.1)
[2018-06-29 06:29] LABS: Basophils # 0.1 10*3/uL (0.0-0.2); Basophils % 0.3 % (0.0-0.8); Eosinophils % 0.1 % (0.00-10.9); Hematocrit 38.6 VOL% (42.0-52.0); Hemoglobin 12.4 GM/DL (14.0-18.0); Immature Granulocytes % 0.8 %; Immature Granulocytes Absolute 0.11 #; Lymphocytes # 1.5 10*3/uL (1.4-4.0); Lymphocytes % 10.3 % (21.2-54.2); Mean Corpuscular HGB Conc 32.1 GM/DL (32-36); Mean Corpuscular Hemoglobin 31 PG (27-34); Mean Corpuscular Volume 95.3 FL (87-102); Mean Platelet Volume 12.6 FL (9.6-12.0); Monocytes # 0.9 10*3/uL (0.11-0.8); Neutrophils % 82.5 % (38.7-73.9); Platelet Count 125 T/CUMM (130-400); Red Blood Count 4.05 MC/CUMM (3.8-5.5); Red Cell Distribution Width 16.3 % (9.3-17.3); White Blood Count 14.6 T/CUMM (4-12)
[2018-06-29 06:41] LABS: Calcium 7.6 MG/DL (8.5-10.1); Osmolality,Calculated 310.3 MOS/KG (273-304); Potassium 3.6 MMOL/L (3.5-5.1)
[2018-06-29 06:43] LABS: INR 2.9
[2018-06-29 06:44] LABS: PT Patient Result 31.1 SECS
[2018-06-29] MEDS: NOREPINEPHRINE 8 MG in SODIUM CHLORIDE 0.9% 242 ML IV PRN (08:07)
[2018-06-29] MEDS: DOCUSATE SODIUM 100 MG CAPSULE PO SCH ×2 (09:35→21:36)
[2018-06-29] MEDS: PANTOPRAZOLE 40 MG TABLET PO SCH (09:35)
[2018-06-29] MEDS: VANCOMYCIN INJ 1,000 MG in SODIUM CHLORIDE 0.9% 250 ML IV SCH (09:35)
[2018-06-29] MEDS: ZINC OXIDE PASTE 113 GM TUBE TOP SCH ×2 (11:57→21:36)
[2018-06-29] MEDS: SODIUM CHLORIDE 0.45% 1,000 ML IV SCH ×2 (12:34→21:44)
[2018-06-29] MEDS ORDERED: WARFARIN 5 MG TABLET PO SCH (18:00)
[2018-06-30] MEDS: ACETAMINOPHEN 325 MG TABLET PO PRN ×2 (00:07→22:08)
[2018-06-30] MEDS: VANCOMYCIN INJ 1,000 MG in SODIUM CHLORIDE 0.9% 250 ML IV SCH ×3 (03:04→22:49)
[2018-06-30 05:33] LABS: Basophils # 0.1 10*3/uL (0.0-0.2); Basophils % 0.5 % (0.0-0.8); Eosinophils # 0.9 10*3/uL (0.0-0.87); Eosinophils % 8.4 % (0.00-10.9); Hematocrit 28.5 VOL% (42.0-52.0); Hemoglobin 9.1 GM/DL (14.0-18.0); Immature Granulocytes % 0.9 %; Lymphocytes # 1.9 10*3/uL (1.4-4.0); Lymphocytes % 17.7 % (21.2-54.2); Mean Corpuscular HGB Conc 31.9 GM/DL (32-36); Mean Corpuscular Hemoglobin 31 PG (27-34); Mean Corpuscular Volume 96.9 FL (87-102); Mean Platelet Volume 11.9 FL (9.6-12.0); Monocytes # 0.6 10*3/uL (0.11-0.8); Monocytes % 5.9 % (1.7-12.7); Neutrophils # 7.1 10*3/uL (1.4-7.4); Neutrophils % 66.6 % (38.7-73.9); Platelet Count 143 T/CUMM (130-400); Red Blood Count 2.94 MC/CUMM (3.8-5.5); Red Cell Distribution Width 16.3 % (9.3-17.3); White Blood Count 10.6 T/CUMM (4-12)
[2018-06-30 05:45] LABS: PT Patient Result 32.5 SECS
[2018-06-30 06:01] LABS: Calcium 6.9 MG/DL (8.5-10.1); Osmolality,Calculated 286.8 MOS/KG (273-304); Potassium 2.9 MMOL/L (3.5-5.1)
[2018-06-30] MEDS: SODIUM CHLORIDE 0.45% 1,000 ML IV SCH ×3 (06:43→22:20)
[2018-06-30] MEDS: DIGOXIN 0.125 MG TABLET PO SCH (08:18)
[2018-06-30] MEDS: ZINC OXIDE PASTE 113 GM TUBE TOP SCH ×2 (08:18→22:08)
[2018-06-30] MEDS: DOCUSATE SODIUM 100 MG CAPSULE PO SCH ×2 (08:18→22:09)
[2018-06-30] MEDS: AMIODARONE 200 MG TABLET PO SCH (08:18)
[2018-06-30] MEDS: ASPIRIN EC 81 MG TABLET PO SCH (08:18)
[2018-06-30] MEDS: PANTOPRAZOLE 40 MG TABLET PO SCH (08:19)
[2018-06-30] MEDS: POTASSIUM CHLORIDE 20 MEQ TABLET PO PRN ×4 (12:38→22:09)
[2018-06-30] MEDS: WARFARIN 5 MG TABLET PO SCH (18:54)
[2018-07-01 04:37] LABS: Basophils # 0.1 10*3/uL (0.0-0.2); Basophils % 0.7 % (0.0-0.8); Eosinophils # 0.9 10*3/uL (0.0-0.87); Eosinophils % 12.4 % (0.00-10.9); Hematocrit 30.9 VOL% (42.0-52.0); Immature Granulocytes % 1.1 %; Immature Granulocytes Absolute 0.08 #; Lymphocytes # 1.6 10*3/uL (1.4-4.0); Lymphocytes % 21.7 % (21.2-54.2); Mean Corpuscular HGB Conc 32.4 GM/DL (32-36); Mean Corpuscular Hemoglobin 31 PG (27-34); Mean Platelet Volume 11.9 FL (9.6-12.0); Monocytes # 0.5 10*3/uL (0.11-0.8); Monocytes % 6.7 % (1.7-12.7); Neutrophils # 4.3 10*3/uL (1.4-7.4); Neutrophils % 57.4 % (38.7-73.9); Platelet Count 175 T/CUMM (130-400); Red Blood Count 3.22 MC/CUMM (3.8-5.5); Red Cell Distribution Width 16.2 % (9.3-17.3); White Blood Count 7.5 T/CUMM (4-12)
[2018-07-01 05:02] LABS: Calcium 7.1 MG/DL (8.5-10.1); Osmolality,Calculated 279.3 MOS/KG (273-304); Potassium 3.7 MMOL/L (3.5-5.1)
[2018-07-01 05:26] LABS: INR 4.5
[2018-07-01 05:33] LABS: PT Patient Result 48.4 SECS
[2018-07-01] MEDS: POTASSIUM CHLORIDE 20 MEQ TABLET PO PRN (06:30)
[2018-07-01] MEDS: SODIUM CHLORIDE 0.45% 1,000 ML IV SCH ×2 (06:31→12:07)
[2018-07-01 06:45] LABS: Eosinophils 13 % (0-10); Lymphocytes 22 % (20-55); Segmented Neutrophils 58 % (50-85); Total Cells Counted 100
[2018-07-01 06:46] LABS: Acanthocytes 1+; Anisocytosis 1+; Ovalocytes 1+
[2018-07-01 06:47] LABS: Platelet Estimate Adequate
[2018-07-01] MEDS: AMIODARONE 200 MG TABLET PO SCH (08:38)
[2018-07-01] MEDS: DOCUSATE SODIUM 100 MG CAPSULE PO SCH ×3 (08:38→21:28)
[2018-07-01] MEDS: DIGOXIN 0.125 MG TABLET PO SCH (08:38)
[2018-07-01] MEDS: PANTOPRAZOLE 40 MG TABLET PO SCH (08:38)
[2018-07-01] MEDS: ASPIRIN EC 81 MG TABLET PO SCH (08:39)
[2018-07-01] MEDS: ZINC OXIDE PASTE 113 GM TUBE TOP SCH ×2 (08:39→21:34)
[2018-07-01] MEDS: VANCOMYCIN INJ 1,000 MG in SODIUM CHLORIDE 0.9% 250 ML IV SCH ×2 (09:30→21:30)
[2018-07-02 05:28] LABS: Basophils # 0.1 10*3/uL (0.0-0.2); Basophils % 0.6 % (0.0-0.8); Eosinophils # 1.1 10*3/uL (0.0-0.87); Hematocrit 32.1 VOL% (42.0-52.0); Hemoglobin 10.2 GM/DL (14.0-18.0); Immature Granulocytes % 1.3 %; Lymphocytes # 1.9 10*3/uL (1.4-4.0); Lymphocytes % 24.1 % (21.2-54.2); Mean Corpuscular HGB Conc 31.8 GM/DL (32-36); Mean Corpuscular Hemoglobin 31 PG (27-34); Mean Platelet Volume 11.5 FL (9.6-12.0); Monocytes # 0.7 10*3/uL (0.11-0.8); Monocytes % 9.3 % (1.7-12.7); Neutrophils # 3.9 10*3/uL (1.4-7.4); Neutrophils % 50.7 % (38.7-73.9); Platelet Count 186 T/CUMM (130-400); Red Blood Count 3.31 MC/CUMM (3.8-5.5); White Blood Count 7.7 T/CUMM (4-12)
[2018-07-02 05:37] LABS: INR 4.4
[2018-07-02 05:42] LABS: PT Patient Result 47.4 SECS
[2018-07-02 05:44] LABS: Calcium 7.5 MG/DL (8.5-10.1); Osmolality,Calculated 277.3 MOS/KG (273-304); Potassium 3.6 MMOL/L (3.5-5.1)
[2018-07-02 05:52] LABS: Acanthocytes Few; Atypical Lymphocytes Few; Eosinophils 10 % (0-10); Hypochromasia 1+; Lymphocytes 26 % (20-55); Segmented Neutrophils 56 % (50-85); Total Cells Counted 100
[2018-07-02 05:53] LABS: Microcytosis Slight
[2018-07-02 05:54] LABS: Platelet Estimate Adequate
[2018-07-02] MEDS: SODIUM CHLORIDE 0.45% 1,000 ML IV SCH (06:20)
[2018-07-02] MEDS: DIGOXIN 0.125 MG TABLET PO SCH (08:58)
[2018-07-02] MEDS: VANCOMYCIN INJ 1,000 MG in SODIUM CHLORIDE 0.9% 250 ML IV SCH ×2 (08:59→20:58)
[2018-07-02] MEDS: ZINC OXIDE PASTE 113 GM TUBE TOP SCH ×2 (08:59→20:59)
[2018-07-02] MEDS: DOCUSATE SODIUM 100 MG CAPSULE PO SCH ×2 (08:59→20:58)
[2018-07-02] MEDS: ASPIRIN EC 81 MG TABLET PO SCH (08:59)
[2018-07-02] MEDS: PANTOPRAZOLE 40 MG TABLET PO SCH (08:59)
[2018-07-02] MEDS: AMIODARONE 200 MG TABLET PO SCH (08:59)
[2018-07-02] MEDS ORDERED: MAGNESIUM SULF RIDER 4 GM in PREMIX 1 EACH IV PRN (10:59)
[2018-07-02] MEDS: MAGNESIUM SULF RIDER 2 GM in PREMIX 1 EACH IV PRN (11:32)
[2018-07-02] MEDS: ACETAMINOPHEN 325 MG TABLET PO PRN (16:28)
[2018-07-03] MEDS: SODIUM CHLORIDE 0.45% 1,000 ML IV SCH (04:35)
[2018-07-03 06:39] LABS: Basophils # 0.1 10*3/uL (0.0-0.2); Basophils % 0.6 % (0.0-0.8); Eosinophils # 1.1 10*3/uL (0.0-0.87); Eosinophils % 11.8 % (0.00-10.9); Hematocrit 33.2 VOL% (42.0-52.0); Hemoglobin 10.5 GM/DL (14.0-18.0); Immature Granulocytes % 1.9 %; Immature Granulocytes Absolute 0.18 #; Lymphocytes # 1.9 10*3/uL (1.4-4.0); Lymphocytes % 19.9 % (21.2-54.2); Mean Corpuscular HGB Conc 31.6 GM/DL (32-36); Mean Corpuscular Hemoglobin 31 PG (27-34); Mean Corpuscular Volume 97.4 FL (87-102); Mean Platelet Volume 11.6 FL (9.6-12.0); Monocytes # 0.9 10*3/uL (0.11-0.8); Monocytes % 9.5 % (1.7-12.7); Neutrophils # 5.3 10*3/uL (1.4-7.4); Neutrophils % 56.3 % (38.7-73.9); Platelet Count 165 T/CUMM (130-400); Red Blood Count 3.41 MC/CUMM (3.8-5.5); Red Cell Distribution Width 16.3 % (9.3-17.3); White Blood Count 9.4 T/CUMM (4-12)
[2018-07-03 06:54] LABS: Calcium 7.4 MG/DL (8.5-10.1); Osmolality,Calculated 277.4 MOS/KG (273-304); Potassium 3.3 MMOL/L (3.5-5.1)
[2018-07-03 07:33] LABS: Anisocytosis 1+; Band Neutrophils 1 % (0-10); Eosinophils 7 % (0-10); Lymphocytes 21 % (20-55); Platelet Estimate Adequate; Poikilocytosis 2+; Segmented Neutrophils 65 % (50-85); Total Cells Counted 100
[2018-07-03] MEDS: VANCOMYCIN INJ 1,000 MG in SODIUM CHLORIDE 0.9% 250 ML IV SCH (08:43)
[2018-07-03] MEDS: PANTOPRAZOLE 40 MG TABLET PO SCH (08:44)
[2018-07-03] MEDS: DIGOXIN 0.125 MG TABLET PO SCH (08:44)
[2018-07-03] MEDS: DOCUSATE SODIUM 100 MG CAPSULE PO SCH ×2 (08:44→21:11)
[2018-07-03] MEDS: ASPIRIN EC 81 MG TABLET PO SCH (08:44)
[2018-07-03] MEDS: POTASSIUM CHLORIDE 20 MEQ TABLET PO PRN ×3 (08:44→13:46)
[2018-07-03] MEDS: AMIODARONE 200 MG TABLET PO SCH (08:44)
[2018-07-03] MEDS: ZINC OXIDE PASTE 113 GM TUBE TOP SCH ×2 (08:46→21:11)
[2018-07-03] MEDS: ACETAMINOPHEN 325 MG TABLET PO PRN ×2 (13:15→23:02)
[2018-07-04] MEDS: SODIUM CHLORIDE 0.45% 1,000 ML IV SCH ×2 (03:52)
[2018-07-04 05:43] LABS: Calcium 7.9 MG/DL (8.5-10.1); Osmolality,Calculated 275.5 MOS/KG (273-304); Potassium 5.2 MMOL/L (3.5-5.1)
[2018-07-04 06:24] LABS: Basophils # 0.1 10*3/uL (0.0-0.2); Basophils % 0.6 % (0.0-0.8); Eosinophils # 1.5 10*3/uL (0.0-0.87); Eosinophils % 10.9 % (0.00-10.9); Hematocrit 31.6 VOL% (42.0-52.0); Immature Granulocytes % 2.2 %; Immature Granulocytes Absolute 0.29 #; Lymphocytes # 2.2 10*3/uL (1.4-4.0); Lymphocytes % 16.2 % (21.2-54.2); Mean Corpuscular HGB Conc 31.6 GM/DL (32-36); Mean Corpuscular Hemoglobin 31 PG (27-34); Mean Corpuscular Volume 96.9 FL (87-102); Mean Platelet Volume 10.5 FL (9.6-12.0); Monocytes # 1.2 10*3/uL (0.11-0.8); Monocytes % 8.7 % (1.7-12.7); Neutrophils # 8.2 10*3/uL (1.4-7.4); Neutrophils % 61.4 % (38.7-73.9); Platelet Count 259 T/CUMM (130-400); Red Blood Count 3.26 MC/CUMM (3.8-5.5); Red Cell Distribution Width 16.4 % (9.3-17.3); White Blood Count 13.3 T/CUMM (4-12)
[2018-07-04] MEDS ORDERED: ALPRAZolam 0.25 MG TABLET PO ONE (08:43)
[2018-07-04] MEDS: DIGOXIN 0.125 MG TABLET PO SCH (10:45)
[2018-07-04] MEDS: AMIODARONE 200 MG TABLET PO SCH (10:45)
[2018-07-04] MEDS: ASPIRIN EC 81 MG TABLET PO SCH (10:46)
[2018-07-04] MEDS: PANTOPRAZOLE 40 MG TABLET PO SCH (10:46)
[2018-07-04] MEDS: DOCUSATE SODIUM 100 MG CAPSULE PO SCH ×2 (10:46→22:14)
[2018-07-04 11:08] LABS: INR 1.3
[2018-07-04] MEDS: ZINC OXIDE PASTE 113 GM TUBE TOP SCH ×2 (13:44→22:15)
[2018-07-04] MEDS: MAGNESIUM SULF RIDER 2 GM in PREMIX 1 EACH IV PRN (15:32)
[2018-07-04] MEDS: WARFARIN 5 MG TABLET PO SCH (17:37)
[2018-07-05 05:13] LABS: Basophils # 0.1 10*3/uL (0.0-0.2); Basophils % 0.6 % (0.0-0.8); Eosinophils # 1.5 10*3/uL (0.0-0.87); Eosinophils % 14.5 % (0.00-10.9); Hemoglobin 9.3 GM/DL (14.0-18.0); Immature Granulocytes % 3.8 %; Lymphocytes # 2.3 10*3/uL (1.4-4.0); Lymphocytes % 21.6 % (21.2-54.2); Mean Corpuscular HGB Conc 32.1 GM/DL (32-36); Mean Corpuscular Hemoglobin 31 PG (27-34); Mean Corpuscular Volume 95.4 FL (87-102); Mean Platelet Volume 10.7 FL (9.6-12.0); Monocytes % 9.4 % (1.7-12.7); Neutrophils # 5.3 10*3/uL (1.4-7.4); Neutrophils % 50.1 % (38.7-73.9); Platelet Count 299 T/CUMM (130-400); Red Blood Count 3.04 MC/CUMM (3.8-5.5); Red Cell Distribution Width 16.4 % (9.3-17.3); White Blood Count 10.5 T/CUMM (4-12)
[2018-07-05 05:20] LABS: INR 1.2; PT Patient Result 12.5 SECS
[2018-07-05 05:25] LABS: Calcium 7.8 MG/DL (8.5-10.1); Osmolality,Calculated 273.7 MOS/KG (273-304); Potassium 3.7 MMOL/L (3.5-5.1)
[2018-07-05 06:04] LABS: Eosinophils 16 % (0-10); Hypochromasia Slight; Lymphocytes 21 % (20-55); Segmented Neutrophils 52 % (50-85); Total Cells Counted 100
[2018-07-05 06:05] LABS: Acanthocytes Few; Microcytosis 1+; Ovalocytes Slight
[2018-07-05 06:07] LABS: Atypical Lymphocytes Few
[2018-07-05] MEDS: CARVEDILOL 25 MG TABLET PO SCH ×2 (08:33→16:36)
[2018-07-05] MEDS: ASPIRIN EC 81 MG TABLET PO SCH (08:33)
[2018-07-05] MEDS: DOCUSATE SODIUM 100 MG CAPSULE PO SCH ×2 (08:33→20:27)
[2018-07-05] MEDS: PANTOPRAZOLE 40 MG TABLET PO SCH (08:34)
[2018-07-05] MEDS: DIGOXIN 0.125 MG TABLET PO SCH (08:34)
[2018-07-05] MEDS: AMIODARONE 200 MG TABLET PO SCH (08:34)
[2018-07-05] MEDS: SODIUM CHLORIDE 0.45% 1,000 ML IV SCH ×2 (08:35)
[2018-07-05] MEDS: ZINC OXIDE PASTE 113 GM TUBE TOP SCH ×2 (08:35→20:28)
[2018-07-05] MEDS: ENOXAPARIN 60 MG/0.6 ML SYRINGE SUBCUT SCH ×2 (09:57→21:47)
[2018-07-05] MEDS: POTASSIUM CHLORIDE 20 MEQ TABLET PO PRN (16:36)
[2018-07-05] MEDS: WARFARIN 5 MG TABLET PO SCH (17:24)
[2018-07-06 05:41] LABS: INR 1.1; PT Patient Result 11.7 SECS
[2018-07-06 08:36] VITALS: BP 137/75
[2018-07-06] MEDS: ENOXAPARIN 60 MG/0.6 ML SYRINGE SUBCUT SCH (09:07)
[2018-07-06] MEDS: CARVEDILOL 25 MG TABLET PO SCH (09:08)
[2018-07-06] MEDS: DIGOXIN 0.125 MG TABLET PO SCH (09:08)
[2018-07-06] MEDS: PANTOPRAZOLE 40 MG TABLET PO SCH (09:09)
[2018-07-06] MEDS: ASPIRIN EC 81 MG TABLET PO SCH (09:09)
[2018-07-06] MEDS: DOCUSATE SODIUM 100 MG CAPSULE PO SCH (09:09)
[2018-07-06] MEDS: AMIODARONE 200 MG TABLET PO SCH (09:09)
[2018-07-06] MEDS: ZINC OXIDE PASTE 113 GM TUBE TOP SCH (09:20)
== END 2018-07-06 11:18 | disposition swing bed (61) | DRG 872 ==
LOC: EDBD → EDUNIT# → N.ED 12:05 → N.EDINP 14:32 → N.ICU 15:12 → N.2E 07-01 13:46
PROVIDERS: ADMIT Family Medicine; ATTEND Family Medicine

== ENCOUNTER 2019-12-04 11:13 | Inpatient (IN) ==
[2019-12-04] MEDS ORDERED: AZITHROMYCIN INJ 500 MG in SODIUM CHLORIDE 0.9% 250 ML IV STA (11:51)
[2019-12-04] MEDS ORDERED: SODIUM CHLORIDE 0.9% 1,000 ML IV STA ×2 (11:51→13:55)
[2019-12-04] MEDS ORDERED: PANTOPRAZOLE 40 MG VIAL IV STA (11:52)
[2019-12-04] MEDS ORDERED: ALUM/MAG/SIMETH/LIDO VISC 1:1 30 ML BOTTLE PO STA (11:52)
[2019-12-04] MEDS ORDERED: ACETAMINOPHEN 500 MG TABLET PO STA (11:53)
[2019-12-04 12:37] LABS: Basophils # 0.1 10*3/uL (0.0-0.2); Basophils % 0.3 % (0.0-0.8); Eosinophils # 0.1 10*3/uL (0.0-0.87); Eosinophils % 0.6 % (0.00-10.9); Hematocrit 38.6 VOL% (42.0-52.0); Hemoglobin 12.2 GM/DL (14.0-18.0); Immature Granulocytes % 0.8 %; Immature Granulocytes Absolute 0.14 #; Lymphocytes # 1.1 10*3/uL (1.4-4.0); Lymphocytes % 6.5 % (21.2-54.2); Mean Corpuscular HGB Conc 31.6 GM/DL (32-36); Mean Corpuscular Volume 85.8 FL (87-102); Mean Platelet Volume 9.6 FL (9.6-12.0); Monocytes % 5.4 % (1.7-12.7); Neutrophils % 86.4 % (38.7-73.9); Platelet Count 284 T/CUMM (130-400); Red Cell Distribution Width 15.9 % (9.3-17.3); White Blood Count 17.4 T/CUMM (4-12)
[2019-12-04 12:45] LABS: INR 2.3
[2019-12-04 12:56] LABS: Alanine Aminotransferase 16 U/L (16-61); Albumin 2.8 G/DL (3.4-5.0); Alkaline Phosphatase 143 U/L (45-117); Aspartate Amino Transferase 22 U/L (0-37); Blood Urea Nitrogen 11 MG/DL (7-18); Calcium 7.8 MG/DL (8.5-10.1); Estimated Glom Filtration Rate 53 ML/MIN; Glucose 94 MG/DL (74-106); Troponin I < 0.015 NG/ML (0.00-0.045)
[2019-12-04] MEDS: SODIUM CHLORIDE 0.9% 1,000 ML IV SCH (15:30)
[2019-12-04] MEDS ORDERED: ONDANSETRON 4 MG/2 ML VIAL IV PRN (16:26)
[2019-12-04] MEDS ORDERED: NOREPINEPHRINE 8 MG in SODIUM CHLORIDE 0.9% 242 ML IV PRN (16:36)
[2019-12-04 17:11] LABS: Apearance,Urine CLEAR (Clear); Bacteria,Urine Moderate /HPF (Few); Bilirubin,Urine Negative (Negative); Blood, Urine Moderate mg/dL (Negative); Glucose,Urine (UA) Negative (Negative); Ketones,Urine Negative (Negative); Nitrite,Urine Negative (Negative); Protein,Urine Negative; RBC,Urine 7 /HPF (0-4); Sperm,Urine Many /HPF (Negative); Urine Color Yellow (Yellow); Urine Specific Gravity 1.005 (1.001-1.035); Urine Urobilinogen < 2.0 EU/DL (0.2-1.0); WBC,Urine 1 /HPF (0-6)
[2019-12-04] MEDS: LEVOFLOXACIN INJ 500 MG in PREMIX 1 EACH IV SCH (19:08)
[2019-12-05] MEDS: ALUMINUM/MAGNES/SIMETH MAX STR 30 ML UDCUP PO SCH ×6 (02:13→21:54)
[2019-12-05] MEDS: PANTOPRAZOLE 40 MG TABLET PO SCH ×3 (02:13→21:59)
[2019-12-05] MEDS: SODIUM CHLORIDE 0.9% 1,000 ML IV SCH ×2 (03:27→15:44)
[2019-12-05 05:36] LABS: Basophils # 0.1 10*3/uL (0.0-0.2); Basophils % 0.4 % (0.0-0.8); Eosinophils # 0.7 10*3/uL (0.0-0.87); Hematocrit 34.5 VOL% (42.0-52.0); Hemoglobin 10.9 GM/DL (14.0-18.0); Immature Granulocytes % 0.7 %; Immature Granulocytes Absolute 0.09 #; Lymphocytes # 1.9 10*3/uL (1.4-4.0); Lymphocytes % 15.6 % (21.2-54.2); Mean Corpuscular HGB Conc 31.6 GM/DL (32-36); Mean Corpuscular Volume 87.1 FL (87-102); Mean Platelet Volume 10.6 FL (9.6-12.0); Neutrophils % 69.3 % (38.7-73.9); Platelet Count 259 T/CUMM (130-400); Red Blood Count 3.96 MC/CUMM (3.8-5.5); Red Cell Distribution Width 15.9 % (9.3-17.3); White Blood Count 12.3 T/CUMM (4-12)
[2019-12-05 05:49] LABS: Albumin 2.4 G/DL (3.4-5.0); Calcium 7.3 MG/DL (8.5-10.1); Osmolality,Calculated 277.4 MOS/KG (273-304); Total Protein 6.4 G/DL (6.4-8.3)
[2019-12-05 05:51] LABS: Blood Urea Nitrogen 12 MG/DL (7-18); Calcium 7.4 MG/DL (8.5-10.1); Estimated Glom Filtration Rate 57 ML/MIN; Glucose 89 MG/DL (74-106); Osmolality,Calculated 279.3 MOS/KG (273-304); Troponin I < 0.015 NG/ML (0.00-0.045)
[2019-12-05] MEDS: LEVOFLOXACIN INJ 500 MG in PREMIX 1 EACH IV SCH (15:42)
[2019-12-05] MEDS ORDERED: ATORVASTATIN 10 MG TABLET PO SCH (21:00)
[2019-12-05] MEDS ORDERED: FAMOTIDINE 20 MG TABLET PO SCH (21:00)
[2019-12-05] MEDS: cilostazoL 100 MG TABLET PO SCH (21:58)
[2019-12-05] MEDS: QUEtiapine 25 MG TABLET PO SCH (21:59)
[2019-12-05] MEDS: CALCIUM CARBONATE CHEW 500 MG TABLET PO SCH (21:59)
[2019-12-06 06:10] LABS: Basophils # 0.1 10*3/uL (0.0-0.2); Basophils % 0.6 % (0.0-0.8); Eosinophils # 0.8 10*3/uL (0.0-0.87); Hematocrit 35.9 VOL% (42.0-52.0); Hemoglobin 11.3 GM/DL (14.0-18.0); Immature Granulocytes % 0.6 %; Immature Granulocytes Absolute 0.05 #; Lymphocytes # 2.4 10*3/uL (1.4-4.0); Lymphocytes % 29.4 % (21.2-54.2); Mean Corpuscular HGB Conc 31.5 GM/DL (32-36); Mean Corpuscular Volume 86.7 FL (87-102); Monocytes % 10.7 % (1.7-12.7); Neutrophils % 48.7 % (38.7-73.9); Platelet Count 232 T/CUMM (130-400); Red Blood Count 4.14 MC/CUMM (3.8-5.5); Red Cell Distribution Width 15.9 % (9.3-17.3); White Blood Count 8.2 T/CUMM (4-12)
[2019-12-06] MEDS ORDERED: LEVOTHYROXINE 88 MCG TABLET PO SCH (06:30)
[2019-12-06 06:31] LABS: INR 1.6; PT Patient Result 16.8 SECS (9.8-11.9)
[2019-12-06 06:33] LABS: Calcium 7.8 MG/DL (8.5-10.1); Osmolality,Calculated 272.7 MOS/KG (273-304)
[2019-12-06] MEDS: SODIUM CHLORIDE 0.9% 1,000 ML IV SCH ×2 (06:42→10:51)
[2019-12-06] MEDS ORDERED: LACTATED RINGERS 1,000 ML IV SCH (08:00)
[2019-12-06] MEDS ORDERED: carvediloL 12.5 MG TABLET PO SCH (08:00)
[2019-12-06] MEDS ORDERED: ALBUTEROL 2.5 MG/3 ML NEB RESP TX ONE ×2 (08:44→08:49)
[2019-12-06] MEDS ORDERED: ASPIRIN EC 81 MG TABLET PO SCH (09:00)
[2019-12-06] MEDS ORDERED: propofoL 200 MG/20 ML VIAL IV ONE (09:00)
[2019-12-06] MEDS ORDERED: LIDOCAINE 2% 5 ML VIAL ONE (09:00)
[2019-12-06] MEDS: PANTOPRAZOLE 40 MG TABLET PO SCH (10:50)
[2019-12-06] MEDS: CALCIUM CARBONATE CHEW 500 MG TABLET PO SCH (10:50)
[2019-12-06] MEDS: cilostazoL 100 MG TABLET PO SCH (10:50)
[2019-12-06] MEDS: QUEtiapine 25 MG TABLET PO SCH (10:51)
[2019-12-06 12:32] VITALS: BP 122/82
== END 2019-12-06 16:10 | DRG 391 ==
LOC: EDUNIT# → EDBD → N.ED 11:13 → SUATTDRO 15:47 → N.EDINP 15:47 → N.TELEN 12-05 13:45
PROVIDERS: ADMIT Internal Medicine; ATTEND Hospitalist